=== PATIENT | male | born 1965 | race Caucasian/White ===

== ENCOUNTER 2017-01-24 17:37 | Inpatient (IN) | payer OTHER, MEDICAID ==
[~2017-01-24] VITALS: Ht 162.6 cm; Wt 60.8 kg
[2017-01-24 19:25] LABS: BASOPHIL % 0.2 % (0-2); PLATELET COUNT 350 x10^3mcL (130-400); RED CELL DISTRIBUTION WIDTH 13.2 % (11.5-14.5)
[2017-01-24 19:34] LABS: CALCIUM 8.7 mg/dL (8.5-10.1); CARBON DIOXIDE 28.9 mmol/L (21-32); CHLORIDE SERUM 105 mmol/L (98-107); CREATININE SERUM 0.8 mg/dL (0.7-1.3); GFR1 > 60 mL/min; GLUCOSE SERUM 121 mg/dL (74-106); POTASSIUM SERUM 3.9 mmol/L (3.5-5.1); SODIUM SERUM 142 mmol/L (136-145)
[2017-01-24 19:35] LABS: microscopic required? YES
[2017-01-24 19:36] LABS: urine erythrocyte TRACE (NEGATIVE)
[2017-01-24 19:44] LABS: ALKALINE PHOSPHATASE 60 U/L (46-116); ALT/SGPT 18 U/L (16-63); AST/SGOT 14 U/L (15-37); BILIRUBIN TOTAL 0.3 mg/dL (0.20-1.00); C REACTIVE PROTEIN 6.5 mg/dL (<=0.9); TOTAL PROTEIN, SERUM 8.1 g/dL (6.4-8.2)
[2017-01-24 19:45] LABS: ALBUMIN 3.1 g/dL (3.4-5.0)
[2017-01-24 19:47] LABS: FREE T4 0.98 ng/dL (0.76-1.46); FREE THYROXINE INDEX 2.4 ug/dL (1.4-4.5); T4(THYROXINE) 6.6 ug/dL (4.7-13.3)
[2017-01-24 19:53] LABS: CK-MB < 0.5 ng/mL (0-3.6); CREATINE KINASE 83 U/L (39-308)
[2017-01-24] MEDS ORDERED: ROBAFEN100 MG/5 M GT (21:38)
[2017-01-24] MEDS ORDERED: PROMETHAZI6.25 MG/5 GT (21:41)
[2017-01-24] MEDS ORDERED: GLYCOPYRROLATE1 M1 GT (21:43)
[2017-01-24] MEDS ORDERED: NATURAL IRON65 MG GT (21:46)
[2017-01-24] MEDS ORDERED: UNIFIBER3 GM/4 GM GT (21:47)
[2017-01-24] MEDS ORDERED: CHILDREN'S5 MG/5 M1 GT (21:48)
[2017-01-24] MEDS ORDERED: NEXIUM40 MG GT (21:50)
[2017-01-24] MEDS ORDERED: PODIAPN CAPSUL1 EACH GT (21:51)
[2017-01-24] MEDS ORDERED: NASONEX0.05 MG/Ac NS (21:53)
[2017-01-24] MEDS ORDERED: REG50I GT (21:54)
[2017-01-24] MEDS ORDERED: CENTRUM MEN'S1 EACH GT (21:59)
[2017-01-24] MEDS ORDERED: VITAMIN C500 MG/5 M GT (22:00)
[2017-01-24] MEDS ORDERED: IBUPROFEN100 MG/5 M GT (22:02)
[2017-01-24 22:37] LABS: MAGNESIUM 2.3 mg/dL (1.8-2.4); PHOSPHOROUS 2.1 mg/dL (2.5-4.9)
[2017-01-24 22:50] VITALS: BP 104/65
[2017-01-25 03:10] VITALS: BP 104/65
[2017-01-25] MEDS ORDERED: LAXATIVE5 M1 PR (03:54)
[2017-01-25] MEDS ORDERED: IBUPROFEN400 MG GT (03:58)
[2017-01-25] MEDS ORDERED: LOPERAMIDE1 MG/5 M1 GT (04:02)
[2017-01-25] MEDS ORDERED: FLEET ENEMA135 ML PR (04:03)
[2017-01-25 05:17] VITALS: BP 102/64
[2017-01-25 07:15] LABS: BASOPHIL % 0.3 % (0-2); PLATELET COUNT 302 x10^3mcL (130-400); RED CELL DISTRIBUTION WIDTH 13.8 % (11.5-14.5)
[2017-01-25 08:34] LABS: T3 TOTAL 0.96 ng/mL
[2017-01-25 09:30] VITALS: BP 105/61
[2017-01-25 10:12] LABS: CALCIUM 8.3 mg/dL (8.5-10.1); CARBON DIOXIDE 27.2 mmol/L (21-32); CHLORIDE SERUM 108 mmol/L (98-107); CREATININE SERUM 0.7 mg/dL (0.7-1.3); GFR1 > 60 mL/min; GLUCOSE SERUM 107 mg/dL (74-106); POTASSIUM SERUM 3.9 mmol/L (3.5-5.1); SODIUM SERUM 142 mmol/L (136-145)
[2017-01-25 10:57] LABS: ERYTHROCYTE SED RATE 73 mm/hr (0-20)
[2017-01-25 13:17] VITALS: BP 116/69
[2017-01-25 17:35] VITALS: BP 121/72
[2017-01-25 20:17] VITALS: BP 100/72
[2017-01-26 05:47] VITALS: BP 127/70
[2017-01-26 06:42] LABS: BASOPHIL % 0.4 % (0-2); PLATELET COUNT 277 x10^3mcL (130-400); RED CELL DISTRIBUTION WIDTH 13.2 % (11.5-14.5)
[2017-01-26 06:54] LABS: CALCIUM 8.5 mg/dL (8.5-10.1); CARBON DIOXIDE 27.1 mmol/L (21-32); CHLORIDE SERUM 104 mmol/L (98-107); CREATININE SERUM 0.7 mg/dL (0.7-1.3); GFR1 > 60 mL/min; GLUCOSE SERUM 109 mg/dL (74-106); POTASSIUM SERUM 3.5 mmol/L (3.5-5.1); SODIUM SERUM 138 mmol/L (136-145)
[2017-01-26 08:35] VITALS: BP 133/100
[2017-01-26 11:00] VITALS: BP 108/75
[2017-01-26 13:16] VITALS: BP 116/78
[2017-01-26 16:35] VITALS: BP 116/76
[2017-01-26 20:52] VITALS: BP 115/76
[2017-01-27 07:50] LABS: BASOPHIL % 0.4 % (0-2); PLATELET COUNT 292 x10^3mcL (130-400); RED CELL DISTRIBUTION WIDTH 13.5 % (11.5-14.5)
[2017-01-27 08:09] LABS: CALCIUM 8.6 mg/dL (8.5-10.1); CARBON DIOXIDE 29.1 mmol/L (21-32); CHLORIDE SERUM 103 mmol/L (98-107); CREATININE SERUM 0.7 mg/dL (0.7-1.3); GFR1 > 60 mL/min; GLUCOSE SERUM 98 mg/dL (74-106); MAGNESIUM 2.3 mg/dL (1.8-2.4); PHOSPHOROUS 2.4 mg/dL (2.5-4.9); POTASSIUM SERUM 4.3 mmol/L (3.5-5.1); SODIUM SERUM 137 mmol/L (136-145)
[2017-01-27] MEDS ORDERED: CLA10 GT (09:28)
[2017-01-27] MEDS ORDERED: BACOINT TOP (09:58)
[2017-01-27 10:46] VITALS: BP 115/76
[2017-01-27] MEDS ORDERED: LEVAQUIN750 MG PO (10:58)
[2017-01-27] MEDS ORDERED: PROBIOTIC1 EAC5 PO (11:00)
== END 2017-01-27 13:03 | DRG 871 ==
LOC: ED 17:37 → DU 20:43 → MU 20:43 → DU 22:15 → MU 01-26 12:48
PROVIDERS: Specialist; ADMIT Family Medicine
DX: A41.9 Sepsis, unspecified organism (principal); J96.00 Acute respiratory failure, unspecified whether with hypoxia or hypercapnia; I50.43 Acute on chronic combined systolic (congestive) and diastolic (congestive) heart failure; N17.0 Acute kidney failure with tubular necrosis; G80.0 Spastic quadriplegic cerebral palsy; N39.0 Urinary tract infection, site not specified; E87.3 Alkalosis; F73 Profound intellectual disabilities; R65.20 Severe sepsis without septic shock; R31.9 Hematuria, unspecified; E83.39 Other disorders of phosphorus metabolism; D64.9 Anemia, unspecified; Z68.23 Body mass index [BMI] 23.0-23.9, adult; Z86.11 Personal history of tuberculosis; Z93.1 Gastrostomy status
CPT/HCPCS: 83880; 84439; J0456; J0696; J1956; J2543; J3490; J7030; J7050; J7620; J8597; Q0092

== ENCOUNTER 2017-01-28 15:09 | Emergency (ER) | payer OTHER, MEDICAID ==
[~2017-01-28 15:09] MED LIST: BACOINT TOP; CENTRUM MEN'S1 EACH GT; CHILDREN'S5 MG/5 M1 GT; CLA10 GT; FLEET ENEMA135 ML PR; GLYCOPYRROLATE1 M1 GT; IBUPROFEN100 MG/5 M GT; IBUPROFEN400 MG GT; LAXATIVE5 M1 PR; LEVAQUIN750 MG PO; LOPERAMIDE1 MG/5 M1 GT; NASONEX0.05 MG/Ac NS; NATURAL IRON65 MG GT; NEXIUM40 MG GT; PODIAPN CAPSUL1 EACH GT; PROBIOTIC1 EAC5 PO; PROMETHAZI6.25 MG/5 GT; REG50I GT; ROBAFEN100 MG/5 M GT; UNIFIBER3 GM/4 GM GT; VITAMIN C500 MG/5 M GT
[2017-01-28 16:59] LABS: BASOPHIL % 0.5 % (0-2); PLATELET COUNT 351 x10^3mcL (130-400); RED CELL DISTRIBUTION WIDTH 13.6 % (11.5-14.5)
[2017-01-28 17:10] LABS: CALCIUM 9.3 mg/dL (8.5-10.1); CARBON DIOXIDE 30.5 mmol/L (21-32); CHLORIDE SERUM 101 mmol/L (98-107); CREATININE SERUM 0.7 mg/dL (0.7-1.3); GFR1 > 60 mL/min; GLUCOSE SERUM 96 mg/dL (74-106); POTASSIUM SERUM 3.8 mmol/L (3.5-5.1); SODIUM SERUM 137 mmol/L (136-145)
[2017-01-28 17:21] LABS: ALKALINE PHOSPHATASE 50 U/L (46-116); ALT/SGPT 22 U/L (16-63); AST/SGOT 26 U/L (15-37); BILIRUBIN TOTAL 0.32 mg/dL (0.20-1.00); TOTAL PROTEIN, SERUM 8.2 g/dL (6.4-8.2)
[2017-01-28 18:02] LABS: CK-MB 1.5 ng/mL (0-3.6)
[2017-01-28 18:19] LABS: microscopic required? NO
[2017-01-28 18:32] LABS: urine erythrocyte NEGATIVE (NEGATIVE)
[2017-01-28 20:41] VITALS: BP 138/74
== END 2017-01-28 20:38 | disposition home or self-care (01) ==
LOC: ED 15:09
PROVIDERS: Emergency Medicine
DX: R09.89 Other specified symptoms and signs involving the circulatory and respiratory systems (principal); K21.9 Gastro-esophageal reflux disease without esophagitis; Q02 Microcephaly; E11.9 Type 2 diabetes mellitus without complications; Z86.2 Personal history of diseases of the blood and blood-forming organs and certain disorders involving the immune mechanism; Z88.8 Allergy status to other drugs, medicaments and biological substances
CPT/HCPCS: 36415; 83880; Q0092

== ENCOUNTER 2017-02-01 14:36 | Inpatient (IN) | payer OTHER, MEDICAID ==
[~2017-02-01] VITALS: Ht 162.6 cm; Wt 57.0 kg
[2017-02-01 15:42] LABS: BASOPHIL % 0.4 % (0-2); PLATELET COUNT 356 x10^3mcL (130-400); RED CELL DISTRIBUTION WIDTH 14.4 % (11.5-14.5)
[2017-02-01 15:52] LABS: CALCIUM 9.4 mg/dL (8.5-10.1); CARBON DIOXIDE 31.8 mmol/L (21-32); CHLORIDE SERUM 99 mmol/L (98-107); CREATININE SERUM 0.8 mg/dL (0.7-1.3); GFR1 > 60 mL/min; GLUCOSE SERUM 111 mg/dL (74-106); SODIUM SERUM 136 mmol/L (136-145)
[2017-02-01 15:56] LABS: ALKALINE PHOSPHATASE 57 U/L (46-116); ALT/SGPT 24 U/L (16-63); AST/SGOT 22 U/L (15-37); BILIRUBIN TOTAL 0.59 mg/dL (0.20-1.00)
[2017-02-01 15:57] LABS: ALBUMIN 3.3 g/dL (3.4-5.0); TOTAL PROTEIN, SERUM 8.7 g/dL (6.4-8.2)
[2017-02-01 19:26] VITALS: BP 111/69
[2017-02-01 19:52] LABS: CHOLESTEROL/HDL RATIO 3.9; MAGNESIUM 2.3 mg/dL (1.8-2.4); PHOSPHOROUS 3.5 mg/dL (2.5-4.9)
[2017-02-01 20:03] LABS: FREE T4 1.15 ng/dL (0.76-1.46); FREE THYROXINE INDEX 3.2 ug/dL (1.4-4.5); T4(THYROXINE) 8.8 ug/dL (4.7-13.3)
[2017-02-02 00:39] LABS: UA SPECIFIC GRAVITY 1.025 (1.005-1.035); microscopic required? YES; urine erythrocyte TRACE (NEGATIVE)
[2017-02-02 04:45] VITALS: BP 105/62
[2017-02-02 06:26] LABS: CALCIUM 8.9 mg/dL (8.5-10.1); CARBON DIOXIDE 30.4 mmol/L (21-32); CHLORIDE SERUM 103 mmol/L (98-107); CREATININE SERUM 0.7 mg/dL (0.7-1.3); GFR1 > 60 mL/min; GLUCOSE SERUM 96 mg/dL (74-106); POTASSIUM SERUM 4.2 mmol/L (3.5-5.1); SODIUM SERUM 139 mmol/L (136-145)
[2017-02-02 06:36] LABS: BASOPHIL % 0.6 % (0-2); PLATELET COUNT 274 x10^3mcL (130-400); RED CELL DISTRIBUTION WIDTH 14.1 % (11.5-14.5)
[2017-02-02 08:43] VITALS: BP 104/67
[2017-02-02 11:47] VITALS: Ht 162.6 cm; Wt 57.0 kg
[2017-02-02 14:00] VITALS: BP 102/67
[2017-02-02 18:00] VITALS: BP 122/66
[2017-02-03 06:57] LABS: BASOPHIL % 0.2 % (0-2); PLATELET COUNT 293 x10^3mcL (130-400); RED CELL DISTRIBUTION WIDTH 13.6 % (11.5-14.5)
[2017-02-03 07:30] LABS: CALCIUM 8.5 mg/dL (8.5-10.1); CARBON DIOXIDE 29.7 mmol/L (21-32); CHLORIDE SERUM 104 mmol/L (98-107); CREATININE SERUM 0.8 mg/dL (0.7-1.3); GFR1 > 60 mL/min; GLUCOSE SERUM 95 mg/dL (74-106); MAGNESIUM 2.2 mg/dL (1.8-2.4); PHOSPHOROUS 2.8 mg/dL (2.5-4.9); POTASSIUM SERUM 4.4 mmol/L (3.5-5.1); SODIUM SERUM 140 mmol/L (136-145)
[2017-02-03 09:29] VITALS: BP 105/67
[2017-02-03 12:05] VITALS: BP 104/72
[2017-02-03 17:27] VITALS: BP 110/71
[2017-02-03 21:24] VITALS: BP 112/82
[2017-02-04 06:15] VITALS: BP 124/72
[2017-02-04 06:55] LABS: BASOPHIL % 0.4 % (0-2); PLATELET COUNT 306 x10^3mcL (130-400); RED CELL DISTRIBUTION WIDTH 14.2 % (11.5-14.5)
[2017-02-04 07:11] LABS: CALCIUM 8.8 mg/dL (8.5-10.1); CARBON DIOXIDE 32.8 mmol/L (21-32); CHLORIDE SERUM 103 mmol/L (98-107); CREATININE SERUM 0.7 mg/dL (0.7-1.3); GFR1 > 60 mL/min; GLUCOSE SERUM 109 mg/dL (74-106); MAGNESIUM 2.2 mg/dL (1.8-2.4); POTASSIUM SERUM 4.5 mmol/L (3.5-5.1); SODIUM SERUM 140 mmol/L (136-145)
[2017-02-04 10:59] VITALS: BP 112/80
[2017-02-04 13:51] VITALS: BP 123/80
[2017-02-04 17:39] VITALS: BP 119/81
[2017-02-04 22:20] VITALS: BP 141/77
[2017-02-05 07:23] VITALS: BP 105/65
[2017-02-05 09:15] VITALS: BP 122/82
[2017-02-05 09:40] VITALS: BP 128/72
[2017-02-05 12:50] VITALS: BP 105/66
[2017-02-05 17:05] VITALS: BP 115/71
[2017-02-05 21:41] VITALS: BP 112/89
[2017-02-06 06:06] VITALS: BP 110/65
[2017-02-06 06:29] LABS: BASOPHIL % 0.3 % (0-2); PLATELET COUNT 287 x10^3mcL (130-400); RED CELL DISTRIBUTION WIDTH 14.2 % (11.5-14.5)
[2017-02-06 06:36] LABS: CARBON DIOXIDE 28.5 mmol/L (21-32); CHLORIDE SERUM 103 mmol/L (98-107); CREATININE SERUM 0.8 mg/dL (0.7-1.3); GFR1 > 60 mL/min; GLUCOSE SERUM 105 mg/dL (74-106); MAGNESIUM 2.5 mg/dL (1.8-2.4); PHOSPHOROUS 3.1 mg/dL (2.5-4.9); POTASSIUM SERUM 3.7 mmol/L (3.5-5.1); SODIUM SERUM 138 mmol/L (136-145)
[2017-02-06 09:20] VITALS: BP 123/77
[2017-02-06 12:49] VITALS: BP 116/86
[2017-02-06 17:11] VITALS: BP 103/40
[2017-02-06 21:30] VITALS: BP 129/83
[2017-02-07 06:21] VITALS: BP 111/74
[2017-02-07 07:26] LABS: CALCIUM 9.2 mg/dL (8.5-10.1); CARBON DIOXIDE 29.3 mmol/L (21-32); CHLORIDE SERUM 102 mmol/L (98-107); CREATININE SERUM 0.8 mg/dL (0.7-1.3); GFR1 > 60 mL/min; GLUCOSE SERUM 91 mg/dL (74-106); MAGNESIUM 2.4 mg/dL (1.8-2.4); PHOSPHOROUS 3.3 mg/dL (2.5-4.9); POTASSIUM SERUM 4.4 mmol/L (3.5-5.1); SODIUM SERUM 138 mmol/L (136-145)
[2017-02-07 07:36] LABS: BASOPHIL % 0.4 % (0-2); PLATELET COUNT 293 x10^3mcL (130-400); RED CELL DISTRIBUTION WIDTH 14.3 % (11.5-14.5)
[2017-02-07 09:43] VITALS: BP 120/75
[2017-02-07 12:23] VITALS: BP 108/71
[2017-02-07 16:30] VITALS: BP 104/55
[2017-02-07 21:23] VITALS: BP 119/73
[2017-02-08 06:42] VITALS: BP 113/68
[2017-02-08 07:13] LABS: BASOPHIL % 0.4 % (0-2); PLATELET COUNT 298 x10^3mcL (130-400)
[2017-02-08 07:20] LABS: RED CELL DISTRIBUTION WIDTH 14.6 % (11.5-14.5)
[2017-02-08 07:53] LABS: CALCIUM 9.2 mg/dL (8.5-10.1); CARBON DIOXIDE 28.9 mmol/L (21-32); CHLORIDE SERUM 102 mmol/L (98-107); CREATININE SERUM 0.8 mg/dL (0.7-1.3); GFR1 > 60 mL/min; GLUCOSE SERUM 111 mg/dL (74-106); MAGNESIUM 2.5 mg/dL (1.8-2.4); PHOSPHOROUS 3.4 mg/dL (2.5-4.9); POTASSIUM SERUM 3.9 mmol/L (3.5-5.1); SODIUM SERUM 138 mmol/L (136-145)
[2017-02-08 09:33] VITALS: BP 106/68
[2017-02-08 14:05] VITALS: BP 109/79
[2017-02-08 18:56] VITALS: BP 157/87
[2017-02-08 21:50] VITALS: BP 102/68
[2017-02-09 05:51] VITALS: BP 112/52
[2017-02-09 06:32] LABS: BASOPHIL % 0.9 % (0-2); PLATELET COUNT 317 x10^3mcL (130-400)
[2017-02-09 07:10] LABS: CALCIUM 9.1 mg/dL (8.5-10.1); CARBON DIOXIDE 30.2 mmol/L (21-32); CHLORIDE SERUM 101 mmol/L (98-107); CREATININE SERUM 0.9 mg/dL (0.7-1.3); GFR1 > 60 mL/min; GLUCOSE SERUM 100 mg/dL (74-106); MAGNESIUM 2.3 mg/dL (1.8-2.4); PHOSPHOROUS 3.5 mg/dL (2.5-4.9); POTASSIUM SERUM 4.2 mmol/L (3.5-5.1); SODIUM SERUM 138 mmol/L (136-145)
[2017-02-09 10:36] VITALS: BP 110/70
[2017-02-09 14:00] VITALS: BP 127/76
[2017-02-09 17:40] VITALS: BP 117/78
[2017-02-09 20:37] VITALS: BP 115/80
[2017-02-10 05:57] VITALS: BP 126/81
[2017-02-10 06:18] LABS: BASOPHIL % 0.5 % (0-2); PLATELET COUNT 303 x10^3mcL (130-400); RED CELL DISTRIBUTION WIDTH 14.5 % (11.5-14.5)
[2017-02-10 07:01] LABS: CALCIUM 9.2 mg/dL (8.5-10.1); CARBON DIOXIDE 27.1 mmol/L (21-32); CHLORIDE SERUM 104 mmol/L (98-107); CREATININE SERUM 0.8 mg/dL (0.7-1.3); GFR1 > 60 mL/min; GLUCOSE SERUM 105 mg/dL (74-106); MAGNESIUM 2.5 mg/dL (1.8-2.4); POTASSIUM SERUM 3.9 mmol/L (3.5-5.1); SODIUM SERUM 140 mmol/L (136-145)
[2017-02-10 09:17] VITALS: BP 101/69
[2017-02-10 13:59] VITALS: BP 112/71
[2017-02-10 17:40] VITALS: BP 122/89
[2017-02-10 22:22] VITALS: BP 128/83
[2017-02-11 09:02] VITALS: BP 101/72
[2017-02-11 09:24] LABS: PLATELET COUNT 307 x10^3mcL (130-400)
[2017-02-11 09:42] LABS: CALCIUM 9.3 mg/dL (8.5-10.1); CARBON DIOXIDE 27.2 mmol/L (21-32); CHLORIDE SERUM 104 mmol/L (98-107); CREATININE SERUM 0.8 mg/dL (0.7-1.3); GFR1 > 60 mL/min; GLUCOSE SERUM 114 mg/dL (74-106); MAGNESIUM 2.6 mg/dL (1.8-2.4); POTASSIUM SERUM 4.3 mmol/L (3.5-5.1); SODIUM SERUM 139 mmol/L (136-145)
[2017-02-11 09:47] LABS: RED CELL DISTRIBUTION WIDTH 14.9 % (11.5-14.5)
[2017-02-11 17:48] VITALS: BP 113/82
[2017-02-11 21:42] VITALS: BP 112/74
[2017-02-12 06:05] VITALS: BP 106/74
[2017-02-12 06:05] LABS: BASOPHIL % 0.7 % (0-2); PLATELET COUNT 313 x10^3mcL (130-400)
[2017-02-12 06:15] LABS: CALCIUM 9.3 mg/dL (8.5-10.1); CARBON DIOXIDE 31.8 mmol/L (21-32); CHLORIDE SERUM 100 mmol/L (98-107); CREATININE SERUM 0.9 mg/dL (0.7-1.3); GFR1 > 60 mL/min; GLUCOSE SERUM 104 mg/dL (74-106); MAGNESIUM 2.4 mg/dL (1.8-2.4); POTASSIUM SERUM 4.4 mmol/L (3.5-5.1); SODIUM SERUM 137 mmol/L (136-145)
[2017-02-12 06:39] LABS: RED CELL DISTRIBUTION WIDTH 14.9 % (11.5-14.5)
[2017-02-12 09:14] VITALS: BP 103/68
[2017-02-12 11:51] VITALS: BP 128/75
[2017-02-12 16:49] VITALS: BP 132/74
[2017-02-12 21:21] VITALS: BP 130/78
[2017-02-13 03:46] VITALS: BP 130/78
[2017-02-13 06:01] VITALS: BP 138/75
[2017-02-13 06:07] LABS: BASOPHIL % 0.8 % (0-2); PLATELET COUNT 345 x10^3mcL (130-400)
[2017-02-13 06:19] LABS: CALCIUM 9.1 mg/dL (8.5-10.1); CARBON DIOXIDE 29.1 mmol/L (21-32); CHLORIDE SERUM 103 mmol/L (98-107); CREATININE SERUM 0.7 mg/dL (0.7-1.3); GFR1 > 60 mL/min; GLUCOSE SERUM 95 mg/dL (74-106); MAGNESIUM 2.2 mg/dL (1.8-2.4); PHOSPHOROUS 3.5 mg/dL (2.5-4.9); POTASSIUM SERUM 4.4 mmol/L (3.5-5.1); SODIUM SERUM 140 mmol/L (136-145)
[2017-02-13 06:31] LABS: RED CELL DISTRIBUTION WIDTH 15.3 % (11.5-14.5)
[2017-02-13 09:32] VITALS: BP 128/81
[2017-02-13 17:31] VITALS: BP 101/69
[2017-02-13 21:32] VITALS: BP 110/74
[2017-02-14 06:02] VITALS: BP 106/68
[2017-02-14 06:16] LABS: BASOPHIL % 0.6 % (0-2); PLATELET COUNT 299 x10^3mcL (130-400)
[2017-02-14 06:37] LABS: CALCIUM 9.2 mg/dL (8.5-10.1); CARBON DIOXIDE 28.5 mmol/L (21-32); CHLORIDE SERUM 102 mmol/L (98-107); CREATININE SERUM 0.8 mg/dL (0.7-1.3); GFR1 > 60 mL/min; GLUCOSE SERUM 112 mg/dL (74-106); MAGNESIUM 2.2 mg/dL (1.8-2.4); POTASSIUM SERUM 4.7 mmol/L (3.5-5.1); SODIUM SERUM 139 mmol/L (136-145)
[2017-02-14 09:36] VITALS: BP 107/72
[2017-02-14 17:09] VITALS: BP 115/75
[2017-02-14 21:17] VITALS: BP 129/87
[2017-02-15 05:30] VITALS: BP 120/76
[2017-02-15 05:59] LABS: BASOPHIL % 0.3 % (0-2); PLATELET COUNT 301 x10^3mcL (130-400)
[2017-02-15 06:14] LABS: RED CELL DISTRIBUTION WIDTH 15.2 % (11.5-14.5)
[2017-02-15 06:23] LABS: CALCIUM 9.1 mg/dL (8.5-10.1); CARBON DIOXIDE 28.9 mmol/L (21-32); CHLORIDE SERUM 105 mmol/L (98-107); CREATININE SERUM 0.8 mg/dL (0.7-1.3); GFR1 > 60 mL/min; GLUCOSE SERUM 122 mg/dL (74-106); MAGNESIUM 2.2 mg/dL (1.8-2.4); PHOSPHOROUS 3.4 mg/dL (2.5-4.9); POTASSIUM SERUM 4.6 mmol/L (3.5-5.1); SODIUM SERUM 142 mmol/L (136-145)
[2017-02-15 08:20] VITALS: BP 112/79
[2017-02-15 10:50] LABS: BILIRUBIN DIRECT 0.09 mg/dL (0.0-0.2); BILIRUBIN TOTAL 0.21 mg/dL (0.20-1.00); TOTAL PROTEIN, SERUM 7.5 g/dL (6.4-8.2)
[2017-02-15 10:51] LABS: ALBUMIN 3.1 g/dL (3.4-5.0)
[2017-02-15] MEDS ORDERED: ETH400 PO (16:25)
[2017-02-15] MEDS ORDERED: ISO300 GT (16:26)
[2017-02-15] MEDS ORDERED: RIF300 PO (16:35)
[2017-02-15] MEDS ORDERED: PYR500 PO (16:35)
[2017-02-15] MEDS ORDERED: IPRATROPIUM BROM3 M2 HHN (16:36)
[2017-02-15] MEDS ORDERED: BG FS (16:37)
[2017-02-15] MEDS ORDERED: PRI20 GT (16:38)
[2017-02-15] MEDS ORDERED: BACO TOP (16:38)
[2017-02-15] MEDS ORDERED: VITC GT (16:39)
[2017-02-15] MEDS ORDERED: MVIL GT (16:39)
[2017-02-15 16:55] VITALS: BP 123/69
== END 2017-02-15 17:39 | DRG 177 ==
LOC: ED 14:36 → DU 16:07 → MU 02-11 10:01
PROVIDERS: Emergency Medicine; Family Medicine; ADMIT Family Medicine
DX: J69.0 Pneumonitis due to inhalation of food and vomit (principal); J96.21 Acute and chronic respiratory failure with hypoxia; N17.0 Acute kidney failure with tubular necrosis; N39.0 Urinary tract infection, site not specified; E44.0 Moderate protein-calorie malnutrition; A15.0 Tuberculosis of lung; R31.9 Hematuria, unspecified; E83.39 Other disorders of phosphorus metabolism; M41.86 Other forms of scoliosis, lumbar region; G80.9 Cerebral palsy, unspecified; F79 Unspecified intellectual disabilities; D64.9 Anemia, unspecified; R73.03 Prediabetes; R13.10 Dysphagia, unspecified; Z86.11 Personal history of tuberculosis; Z68.21 Body mass index [BMI] 21.0-21.9, adult; Z93.1 Gastrostomy status
CPT/HCPCS: 82962; 83880; 84439; 86480; 87116; 87206; J0696; J1580; J1630; J1956; J2060; J2543; J7030; J7613; J7620; J7644; Q0092; Q9967

== ENCOUNTER 2017-03-21 21:51 | Inpatient (IN) | payer OTHER, MEDICAID ==
[~2017-03-21] VITALS: Ht 154.9 cm; Wt 59.0 kg
[~2017-03-21 21:51] MED LIST changes: +BACO TOP; +BG FS; +ETH400 PO; +IPRATROPIUM BROM3 M2 HHN; +ISO300 GT; +MVIL GT; +PRI20 GT; +PYR500 PO; +RIF300 PO; +VITC GT
[2017-03-21 23:18] LABS: BASOPHIL % 0.6 % (0-2); PLATELET COUNT 189 x10^3mcL (130-400)
[2017-03-21 23:20] LABS: RED CELL DISTRIBUTION WIDTH 15.7 % (11.5-14.5)
[2017-03-21 23:32] LABS: CALCIUM 9.7 mg/dL (8.5-10.1); CHLORIDE SERUM 117 mmol/L (98-107); GFR1 > 60 mL/min; GLUCOSE SERUM 113 mg/dL (74-106); POTASSIUM SERUM 3.9 mmol/L (3.5-5.1); SODIUM SERUM 158 mmol/L (136-145)
[2017-03-21 23:43] LABS: ALBUMIN 3.7 g/dL (3.4-5.0); ALKALINE PHOSPHATASE 67 U/L (46-116); ALT/SGPT 41 U/L (16-63); AMYLASE 77 U/L (25-115); AST/SGOT 25 U/L (15-37); BILIRUBIN TOTAL 0.3 mg/dL (0.20-1.00); LIPASE 332 IU/L (73-393)
[2017-03-21 23:44] LABS: TOTAL PROTEIN, SERUM 8.3 g/dL (6.4-8.2)
[2017-03-22 00:51] LABS: microscopic required? YES; urine erythrocyte NEGATIVE (NEGATIVE)
[2017-03-22] MEDS ORDERED: ACETAMINOP160 MG/52 PO (02:55)
[2017-03-22] MEDS ORDERED: CHILDREN'S100 MG/52 PO (02:56)
[2017-03-22] MEDS ORDERED: LOPERAMIDE1 MG/5 M1 PO (02:56)
[2017-03-22] MEDS ORDERED: NEXIUM40 MG PO (02:57)
[2017-03-22] MEDS ORDERED: PROMETHAZI6.25 MG/3 (02:57)
[2017-03-22] MEDS ORDERED: FERROUS SULFAT325 M2 PO (02:57)
[2017-03-22] MEDS ORDERED: CHILDREN'S5 MG/5 M1 PO (02:58)
[2017-03-22] MEDS ORDERED: REG10I GT (02:58)
[2017-03-22] MEDS ORDERED: ETHAMBUTOL HCL400 MG PO (02:59)
[2017-03-22] MEDS ORDERED: UNIFIBER3 GM/4 GM (02:59)
[2017-03-22] MEDS ORDERED: NASONEX0.05 MG/Ac (02:59)
[2017-03-22] MEDS ORDERED: PYR500 GT (03:00)
[2017-03-22] MEDS ORDERED: ISO300 GT (03:00)
[2017-03-22] MEDS ORDERED: GOOD SENSE OMEP20 MG GT (03:01)
[2017-03-22] MEDS ORDERED: RIFADIN300 MG GT (03:01)
[2017-03-22 03:50] VITALS: BP 105/69
[2017-03-22 04:11] LABS: T3 TOTAL 1.24 ng/mL
[2017-03-22 04:22] LABS: FREE T4 0.83 ng/dL (0.76-1.46); FREE THYROXINE INDEX 2.3 ug/dL (1.4-4.5); T4(THYROXINE) 7.2 ug/dL (4.7-13.3)
[2017-03-22 04:34] LABS: CHOLESTEROL/HDL RATIO 5.4; MAGNESIUM 2.8 mg/dL (1.8-2.4); PHOSPHOROUS 4.4 mg/dL (2.5-4.9)
[2017-03-22 09:42] VITALS: BP 91/50
[2017-03-22 14:23] VITALS: BP 115/73
[2017-03-22 15:20] LABS: CALCIUM 8.3 mg/dL (8.5-10.1); CARBON DIOXIDE 30.4 mmol/L (21-32); CHLORIDE SERUM 121 mmol/L (98-107); CREATININE SERUM 0.9 mg/dL (0.7-1.3); GFR1 > 60 mL/min; GLUCOSE SERUM 96 mg/dL (74-106); POTASSIUM SERUM 3.6 mmol/L (3.5-5.1); SODIUM SERUM 157 mmol/L (136-145)
[2017-03-22 15:27] LABS: BASOPHIL % 0.5 % (0-2); PLATELET COUNT 149 x10^3mcL (130-400)
[2017-03-22 15:28] LABS: RED CELL DISTRIBUTION WIDTH 15.5 % (11.5-14.5)
[2017-03-22 16:38] VITALS: BP 95/69
[2017-03-22 20:45] VITALS: BP 102/63
[2017-03-23 06:51] LABS: BASOPHIL % 0.1 % (0-2); PLATELET COUNT 140 x10^3mcL (130-400)
[2017-03-23 06:59] LABS: RED CELL DISTRIBUTION WIDTH 15.1 % (11.5-14.5)
[2017-03-23 07:17] LABS: CALCIUM 8.9 mg/dL (8.5-10.1); CARBON DIOXIDE 30.5 mmol/L (21-32); CHLORIDE SERUM 115 mmol/L (98-107); CREATININE SERUM 0.8 mg/dL (0.7-1.3); GFR1 > 60 mL/min; GLUCOSE SERUM 120 mg/dL (74-106); MAGNESIUM 2.1 mg/dL (1.8-2.4); PHOSPHOROUS 2.7 mg/dL (2.5-4.9); POTASSIUM SERUM 3.7 mmol/L (3.5-5.1); SODIUM SERUM 151 mmol/L (136-145)
[2017-03-23 08:05] VITALS: BP 109/59
[2017-03-23 17:22] VITALS: BP 90/61
[2017-03-23 21:28] VITALS: BP 103/64
[2017-03-24 06:21] VITALS: BP 99/68
[2017-03-24 06:22] LABS: CALCIUM 8.4 mg/dL (8.5-10.1); CARBON DIOXIDE 32.3 mmol/L (21-32); CHLORIDE SERUM 112 mmol/L (98-107); CREATININE SERUM 0.8 mg/dL (0.7-1.3); GFR1 > 60 mL/min; GLUCOSE SERUM 104 mg/dL (74-106); MAGNESIUM 2.2 mg/dL (1.8-2.4); PHOSPHOROUS 2.8 mg/dL (2.5-4.9); POTASSIUM SERUM 3.4 mmol/L (3.5-5.1); SODIUM SERUM 148 mmol/L (136-145)
[2017-03-24 06:27] LABS: BASOPHIL % 0.2 % (0-2); PLATELET COUNT 152 x10^3mcL (130-400)
[2017-03-24 06:40] LABS: RED CELL DISTRIBUTION WIDTH 14.9 % (11.5-14.5)
[2017-03-24 07:42] VITALS: BP 108/67
[2017-03-24 10:00] VITALS: BP 101/70
[2017-03-24 10:38] VITALS: Ht 154.9 cm; Wt 59.0 kg
[2017-03-24 13:25] VITALS: BP 103/66
[2017-03-24 21:50] VITALS: BP 104/66
[2017-03-25 06:20] VITALS: BP 101/64
[2017-03-25 06:55] LABS: BASOPHIL % 0.1 % (0-2); PLATELET COUNT 147 x10^3mcL (130-400)
[2017-03-25 07:03] LABS: RED CELL DISTRIBUTION WIDTH 15.1 % (11.5-14.5)
[2017-03-25 07:09] LABS: CALCIUM 8.3 mg/dL (8.5-10.1); CARBON DIOXIDE 31.2 mmol/L (21-32); CHLORIDE SERUM 109 mmol/L (98-107); CREATININE SERUM 0.7 mg/dL (0.7-1.3); GFR1 > 60 mL/min; GLUCOSE SERUM 114 mg/dL (74-106); MAGNESIUM 2.1 mg/dL (1.8-2.4); PHOSPHOROUS 2.6 mg/dL (2.5-4.9); POTASSIUM SERUM 3.4 mmol/L (3.5-5.1); SODIUM SERUM 143 mmol/L (136-145)
[2017-03-25 09:00] VITALS: BP 103/73
[2017-03-25 18:45] VITALS: BP 102/73
[2017-03-25 21:55] VITALS: BP 108/69
[2017-03-26 05:04] VITALS: BP 102/65
[2017-03-26 06:50] LABS: BASOPHIL % 0.2 % (0-2); CALCIUM 8.7 mg/dL (8.5-10.1); CHLORIDE SERUM 107 mmol/L (98-107); CREATININE SERUM 0.7 mg/dL (0.7-1.3); GFR1 > 60 mL/min; GLUCOSE SERUM 111 mg/dL (74-106); MAGNESIUM 2.2 mg/dL (1.8-2.4); PHOSPHOROUS 3.1 mg/dL (2.5-4.9); PLATELET COUNT 164 x10^3mcL (130-400); POTASSIUM SERUM 4.3 mmol/L (3.5-5.1); SODIUM SERUM 143 mmol/L (136-145)
[2017-03-26 07:00] LABS: RED CELL DISTRIBUTION WIDTH 14.9 % (11.5-14.5)
[2017-03-26 09:03] VITALS: BP 113/75
[2017-03-26] MEDS ORDERED: SEROQUEL100 MG PO (10:17)
[2017-03-26 11:42] VITALS: BP 113/75
[2017-03-26 12:17] VITALS: BP 99/64
[2017-04-01] MEDS ORDERED: ROBAFEN100 MG/5 M GT (16:23)
== END 2017-03-26 14:20 | DRG 640 ==
LOC: ED 21:51 → DU 03-22 02:14 → MU 03-24 10:05
PROVIDERS: Emergency Medicine; Family Medicine; Family Medicine Sports Medicine; ADMIT Family Medicine
DX: E86.0 Dehydration (principal); N17.0 Acute kidney failure with tubular necrosis; G93.41 Metabolic encephalopathy; G80.0 Spastic quadriplegic cerebral palsy; F73 Profound intellectual disabilities; E87.0 Hyperosmolality and hypernatremia; E83.41 Hypermagnesemia; Q90.9 Down syndrome, unspecified; Z93.1 Gastrostomy status; Z68.21 Body mass index [BMI] 21.0-21.9, adult
CPT/HCPCS: 82962; 83880; 84439; 90658; J2405; J3490; J7030; J7040; J7050; Q0092

== ENCOUNTER 2017-03-26 22:53 | Emergency (ER) | payer OTHER, MEDICAID ==
[~2017-03-26 22:53] MED LIST changes: +ACETAMINOP160 MG/52 PO; +CHILDREN'S100 MG/52 PO; +CHILDREN'S5 MG/5 M1 PO; +ETHAMBUTOL HCL400 MG PO; +FERROUS SULFAT325 M2 PO; +GOOD SENSE OMEP20 MG GT; +LOPERAMIDE1 MG/5 M1 PO; +NASONEX0.05 MG/Ac; +NEXIUM40 MG PO; +PROMETHAZI6.25 MG/3; +PYR500 GT; +REG10I GT; +RIFADIN300 MG GT; +SEROQUEL100 MG PO; +UNIFIBER3 GM/4 GM
[2017-03-27 00:37] LABS: BASOPHIL % 0.4 % (0-2); PLATELET COUNT 192 x10^3mcL (130-400)
[2017-03-27 00:38] LABS: RED CELL DISTRIBUTION WIDTH 14.8 % (11.5-14.5)
[2017-03-27 00:51] LABS: CALCIUM 8.9 mg/dL (8.5-10.1); CARBON DIOXIDE 31.2 mmol/L (21-32); CHLORIDE SERUM 106 mmol/L (98-107); CREATININE SERUM 0.8 mg/dL (0.7-1.3); GFR1 > 60 mL/min; GLUCOSE SERUM 131 mg/dL (74-106); POTASSIUM SERUM 3.7 mmol/L (3.5-5.1); SODIUM SERUM 142 mmol/L (136-145)
[2017-03-27 00:55] LABS: ALKALINE PHOSPHATASE 58 U/L (46-116); ALT/SGPT 33 U/L (16-63); AST/SGOT 38 U/L (15-37); BILIRUBIN TOTAL 0.39 mg/dL (0.20-1.00); TOTAL PROTEIN, SERUM 7.2 g/dL (6.4-8.2)
[2017-03-27 07:10] VITALS: BP 108/68
== END 2017-03-27 07:10 | disposition home or self-care (01) ==
LOC: ED 22:53
PROVIDERS: Emergency Medicine
DX: R00.0 Tachycardia, unspecified (principal); E11.9 Type 2 diabetes mellitus without complications; K21.9 Gastro-esophageal reflux disease without esophagitis; G82.20 Paraplegia, unspecified; Q02 Microcephaly
CPT/HCPCS: J7030

== ENCOUNTER 2017-04-01 12:31 | Inpatient (IN) | payer OTHER, MEDICAID ==
[~2017-04-01] VITALS: Ht 154.9 cm; Wt 53.7 kg
--- NOTE | 2017-04-01 12:49 | NUR ---
PT BROUGHT TO ED VIA [facility] FROM [facility] FOR GENERALIZED WEAKNESS X2 WEEKS AND INCREASED LETHARY AND AGITATION SINCE THIS MORNING. PT HAS HX OF AUTISM, PROFOUND MR, NONVERBAL, NON AMBULATORY. PER REPORT PT WAS RECENTLY DISCHARGED FROM [facility]. PT ARRIVED TO ED AWAKE, NON VERBAL, RESPS EVEN AND UNLABORED, LUNG SOUNDS CLEAR, BARREL CHEST AND CAULIFLOWER EARS NOTED, SKIN WARM/DRY TO TOUCH WITH INCREASED DRYNESS NOTED TO EXTREMITIES, G-TUBE IN PLACE TO MUQ WITH SLIGHT REDNESS SURROUNDING AREA AND NO DRAINAGE NOTED, DIAPER IN PLACE FROM FACILITY, RIGIDITY NOTED TO BILATERAL ARMS AND LEGS, NO S/S OF DISTRESS NOTED. PT GOWNED, PLACED ON INFORMATION SYSTEMS COORDINATOR.
--- NOTE | 2017-04-01 13:05 | NUR ---
MSE COMPLETED BY DR. HERNANDEZ.
--- NOTE | 2017-04-01 13:17 | NUR ---
FABY HERRERA FROM PT'S BOARD AND [facility] CALLED AND REPORTED PT HAS BEEN TAKING PROPHYLACTIC TB MEDS X1 MONTH, NEGATIVE SPUTUM CULTURES, TESTED POSITIVE IN PAST, SHE ALSO REPORTS EPISODES OF VOMITING STARTED AT NIGHT APPROX 1.5 MONTHS AGO AND HE WAS SEEN IN ED FOR SAME LAST WEEK AND BY HIS PRIMARY MD 3 DAYS AGO AND PRESCRIBEDS ZOFRAN WITH NO EFFECTIVENESS. PT LAST VOMITED AT 0230 TODAY PER CAREGIVER, SHE ALSO STATED HE HAS G-TUBE FEEDING VIA PUMP FROM [id number] DAILY.
[2017-04-01 13:28] LABS: BASOPHIL % 0.2 % (0-2); PLATELET COUNT 361 x10^3mcL (130-400)
[2017-04-01 13:29] LABS: RED CELL DISTRIBUTION WIDTH 15.6 % (11.5-14.5)
[2017-04-01 13:36] LABS: CALCIUM 9.9 mg/dL (8.5-10.1); CARBON DIOXIDE 38.1 mmol/L (21-32); CHLORIDE SERUM 109 mmol/L (98-107); GFR1 > 60 mL/min; GLUCOSE SERUM 127 mg/dL (74-106); POTASSIUM SERUM 3.7 mmol/L (3.5-5.1); SODIUM SERUM 154 mmol/L (136-145)
[2017-04-01 13:47] LABS: ALKALINE PHOSPHATASE 62 U/L (46-116); ALT/SGPT 55 U/L (16-63); AMYLASE 67 U/L (25-115); AST/SGOT 38 U/L (15-37); BILIRUBIN TOTAL 0.2 mg/dL (0.20-1.00); CHOLESTEROL 190 mg/dL (<200); HDL CHOLESTEROL 40 mg/dL (40-60); LIPASE 226 IU/L (73-393); MAGNESIUM 2.6 mg/dL (1.8-2.4); T4(THYROXINE) 7.7 ug/dL (4.7-13.3); TOTAL PROTEIN, SERUM 7.7 g/dL (6.4-8.2)
--- NOTE | 2017-04-01 13:52 | NUR ---
RT AT BEDSIDE FOR ABG DRAW.
[2017-04-01 13:57] LABS: ALBUMIN 3.1 g/dL (3.4-5.0)
--- NOTE | 2017-04-01 14:25 | NUR ---
MULTIPLE ATTEMPTS AT ABG, UNOBTAINABLE AT THIS TIME, GILBERT CATH STARTED WITH A COUDE, DIFFICULT INSERTION
[2017-04-01 14:35] LABS: microscopic required? YES; urine erythrocyte NEGATIVE (NEGATIVE)
[2017-04-01 14:45] LABS: AMPHETAMINE QUAL UR NONE DETECTED (NEG <=1000)
--- NOTE | 2017-04-01 15:07 | NUR ---
PT LAYING IN ED GURNEY IN POSITION OF COMFORT, SLEEPING, EASILY AROUSABLE, RESPS EVEN AND UNLABORED, SKIN WARM/DRY TO TOUCH, NO S/S OF DISTRESS NOTED.
--- NOTE | 2017-04-01 15:35 | NUR ---
2L NS BOLUS COMPLETED PER ORDERS TO LEFT FA IV WITH NO SIGNS OF INFILTRATION TO IV SITE, PT IN NO DISTRESS. COMFORT MEASURES IN PLACE.
[2017-04-01] MEDS ORDERED: ACETAMINOP160 MG/52 GT (16:18)
[2017-04-01] MEDS ORDERED: BISAC-EVAC10 MG RC (16:19)
[2017-04-01] MEDS ORDERED: FLEET ENEMA135 ML RC (16:19)
[2017-04-01] MEDS ORDERED: GLYCOPYRROLATE1 M1 GT (16:20)
[2017-04-01] MEDS ORDERED: QUALITY CHOICE200 MG GT (16:21)
[2017-04-01] MEDS ORDERED: LOPERAMIDE1 MG/5 M1 GT (16:21)
[2017-04-01] MEDS ORDERED: PHENYLEPHRINE GT (16:22)
[2017-04-01] MEDS ORDERED: GOODSENSE100 MG/5 M GT (16:23)
[2017-04-01] MEDS ORDERED: NUTREN 2.0250 ML GT (16:25)
[2017-04-01] MEDS ORDERED: ZOF4 GT (16:26)
[2017-04-01] MEDS ORDERED: ETHAMBUTOL HCL400 MG GT (16:27)
[2017-04-01] MEDS ORDERED: NEXIUM40 MG GT (16:27)
[2017-04-01] MEDS ORDERED: FERL GT (16:28)
[2017-04-01] MEDS ORDERED: HM COMPLETE MU1 EACH GT (16:29)
[2017-04-01] MEDS ORDERED: CHILDREN'S5 MG/5 M1 GT (16:29)
[2017-04-01] MEDS ORDERED: NASONEX0.05 MG/Ac (16:30)
[2017-04-01] MEDS ORDERED: METOCLOPRAM5 MG/5 M3 GT (16:30)
[2017-04-01] MEDS ORDERED: GOOD SENSE OMEP20 MG GT (16:30)
[2017-04-01] MEDS ORDERED: PYR500 GT (16:31)
[2017-04-01] MEDS ORDERED: UNIFIBER3 GM/4 GM GT (16:32)
--- NOTE | 2017-04-01 16:32 | NUR ---
REPORT CALLED TO REG GRIFFITH, PT TO BE ADMITTED TO TELE ROOM 242B. PT IN NO DISTRESS.
[2017-04-01] MEDS ORDERED: VITAMIN B-650 M2 GT (16:33)
[2017-04-01] MEDS ORDERED: PHARMASSURE VI500 MG GT (16:34)
--- NOTE | 2017-04-01 16:54 | NUR ---
RECEIVED PT FROM ED VIA GUERNEY, CAME IN DUE TO VOMITING AND WEAKNESS. ALERT AND AWAKE, NON-VERBAL, DOES NOT FOLLOW COMMANDS. NO SOB NOTED, LUNG SOUNDS DIMINISHED ON AUSCULTATION. NO S/S OF CHEST PAIN/PRESSURE, SINUS TACHYCARDIA, HR AT 110. NO S/S OF ABDOMINAL DISCOMFORT. BOWEL SOUNDS HYPOACTIVE. W/ G-TUBE MONEGASQUE 22, CLAMPED AT THIS TIME. W/ MILD REDNESS NOTED ON THE G-TUBE SITE, NO DRAINAGE NOTED. W/ GILBERT CATHETER MONEGASQUE 18 DRAINING W/ YESENIA COLORED URINE. IV SITE PATENT AND INTACT. PADDED SIDE RAILS UP. ON AIR MATTRESS. HOB ELEVATED AT 40 DEG. PRIMARY NURSE EVITA AT BEDSIDE FOR CONTINUITY OF CARE.
[2017-04-01 17:17] VITALS: BP 107/61
[2017-04-01 17:21] VITALS: Ht 154.9 cm; Wt 53.7 kg
--- NOTE | 2017-04-01 18:05 | NUR ---
Pt. ALERT, AWAKE NON VERBAL UNABLE TO FOLLOW COMMANDS, RESPIRATIONS EVEN AND UNLABORED O2 2L/MIN NC NO DISTRESS NOTED. NO SIGNS PAIN/DISCOMFORT AT THIS TIME. TELE IN PLACE. IVF RUNNING TO IV LFA PATENT AND INTACT. AIR MATTRESS AND SZ PRECAUTIONS IN PLACE. G TUBE CLAMPED. GILBERT CATHETER DRAINING CLOUDY YESENIA COLORED URINE. BED LOW/LOCKED. CALL LIGHT IN REACH. CONTACT PRECAUTIONS IN PLACE.
--- NOTE | 2017-04-01 20:15 | NUR ---
RECEIVED PT IN BED, AWAKE. UNABLE TO FOLLOW COMMANDS. HX OF CEREBRAL PALSY AND DOWN SYNDROME. RESP. EVEN AND UNLABORED, [address] TENDS TO REMOVE NASAL CANNULA. SITTER AT THE BEDSIDE FOR SAFETY. NO DISTRESS NOTED. AMY, NS AT 100ML/HR, INTACT AND INFUSING VIA LFA, SITE CLEAR. ST ON THE MONITOR, NO EVIDENCE OF ANY DISCOMFORT. GT INTACT AND CLAMPED. GILBERT CATH INTACT AND DRAINING YESENIA COLOR URINE. ON AIR MATTRESS, NEEDS ASSIST. WITH TURNING AND REPOSITIONING. WILL CONTINUE TO MONITOR.
[2017-04-01 21:27] VITALS: BP 96/64
--- NOTE | 2017-04-02 00:34 | NUR ---
HAD X1 BROWNISH COLOR EMESIS , ABOUT 150ML, CLEANED AND KEPT COMFORTABLE . ZOFRAN 4MG IV GIVEN ORDERED.WILL CONTINUE TO MONITOR.
--- NOTE | 2017-04-02 01:46 | NUR ---
OCCA. NON PRODUCTIVE COUGH NOTED. MEDICATED WITH ROBITUSSIN VIA GT. WILL CONTINUE TO MONITOR.
--- NOTE | 2017-04-02 03:53 | NUR ---
RESTLESS, UNABLE TO SLEEP, DR DUQUE NOTIFIED. ORDER RECEIVED TO GIVE ATIVAN IV, MEDICATED WITH ATIVAN 1MG IV ORDERED. WILL CONTINUE TO MONITOR.
[2017-04-02 05:57] VITALS: BP 116/77
--- NOTE | 2017-04-02 06:26 | NUR ---
DOOZING OFF AND ON AT THIS TIME.RESP. EVEN AND UNLABORED. [address] SAT[address] WELL. NO DISTRESS NOTED. AFEBRILE AND VITAL SIGNS STABLE. IVF INTACT AND INFUSING WELL, SITE CLEAR. NO SEIZURE ACTIVITY NOTED. CONTACT ISOLATION PREC. MAINTAINED.KEPT COMFORTABLE. GT CLAMPED. NO N/V NOTED AT THIS TIME. SITTER AT THE BEDSIDE FOR SAFETY. WILL ENDORSE TO INCOMING NURSE.
[2017-04-02 07:02] LABS: BASOPHIL % 0.3 % (0-2); PLATELET COUNT 295 x10^3mcL (130-400)
[2017-04-02 07:05] LABS: CALCIUM 8.4 mg/dL (8.5-10.1); CARBON DIOXIDE 32.4 mmol/L (21-32); CHLORIDE SERUM 116 mmol/L (98-107); CREATININE SERUM 0.8 mg/dL (0.7-1.3); GFR1 > 60 mL/min; GLUCOSE SERUM 106 mg/dL (74-106); MAGNESIUM 2.2 mg/dL (1.8-2.4); PHOSPHOROUS 3.2 mg/dL (2.5-4.9); POTASSIUM SERUM 3.8 mmol/L (3.5-5.1); SODIUM SERUM 154 mmol/L (136-145)
[2017-04-02 07:12] LABS: RED CELL DISTRIBUTION WIDTH 15.4 % (11.5-14.5)
--- NOTE | 2017-04-02 08:00 | NUR ---
NON VERBAL, WITHDRAWS ARMS AND LEGS TO TOUCH, CARE. COUGHS IN YOUR FACE WHEN ATITATED WITH TOUCH/CARE. TELE # 32 SR. LUNGS CTA. O2 SAT WHEN LAYING FLAT FOR US CAROTID WAS 91%, INCREASED TO 4L NC FOR PURPOSE OF TESTING FOR CT HEAD AND FOR US CAROTID, O2 SAT 98% ON 4L NC. BS'S ACTIVE TIMES 4. GT CLAMPED. PERIPHERAL PULSES PALPABLE, NO EDEMA. SCD BLE. IV SITE TO [facility]I. MEDICAL ROUNDS OCCURED AT [address] PURVIS AMD THE MEDICINE TEAM. THEY WERE AWARE THAT PT WAS TOO AGITATED TO TOLERATE THE CT HEAD LAST NOC AND CURRENTLY NOT ABLE TO TOLERATE US CAROTID, HE CANT STAY STILL. THEY ORDERED ATIVAN 0.5 MG IVP FOR TESTING PURPOSES.
--- NOTE | 2017-04-02 08:15 | NUR ---
KARISSA CANO AND ROBERTO MCKINLEY HAD THE SUPERINTENDENT TRANSMISSION APPLY A PAULINA RESTRAINT AT 0815, TO RIGHT HAND, NOT TIED TO BED, FOR PURPOSES OF KEEPING HIM FROM REMOVING HIS O2 AND SO HE WONT PUT HIS FINGER IN HIS MOUTH AND JOMAR HIMSELF. PER NOC SHIFT HE STICKS HIS FINGER IN HIS MOUTH TO MAKE HIMSELF VOMIT.
[2017-04-02 09:31] VITALS: BP 109/73
[2017-04-02 12:00] VITALS: BP 109/73
[2017-04-02 13:09] VITALS: BP 99/64
--- NOTE | 2017-04-02 16:39 | NUR ---
I CLEANED THE GT SITE WITH WOUND CLEANSER, APPLIED A SPLIT GAUZE AND A SHON VALVE TO GT. PT KEPT TRYING TO PULL THE BLANKETS UP TO STOP ME, THEN WHEN I KEPT CLEANING HE BECAME AGITATED THEN SHOVED HIS LEFT FIST IN HIS MOUTH AND STARTED GAGGING. I PULLED IT OUT, THEN HE STARTED DIGGING IN HIS DIAPER AND THE LOOSE STOOL WAS ALL OVER HIS FINGERS AND IT WAS BLACK.I PAGED DR LEAL, TO TELL HER OF THE BLACK STOOL. THERE IS A GI CONSULT WITH DR BORREGO, HE HASNT COME YET.
--- NOTE | 2017-04-02 16:43 | NUR ---
DR LEAL AWARE OF THE BLACK STOOL AND THE PT DIGGING IN HIS DIAPER AND SHOVING HIS HAND IN HIS MOUTH. WE DID CLEAN HIS HANDS AND HE WILL BE CLEANED AND HIS DIAPER WILL BE BETTER SECURED.
--- NOTE | 2017-04-02 17:19 | NUR ---
Initial Nutrition Assessment Dx: Generalized weakness, leukocytosis PMHx: Down Syndrome,Cerebral Palsy and Seizures PSHx: G-tube placement Labs: (04/02) Na:154H, B, Ca:8.4L, H/H:11.6/36L(03/29)AST:38H, Meds: Antivert, Colace, Dulocolax, Humulin, Lactinex, NS IV, Theragran, Zofran Diet:Nutren 2.0 at 83ml/hr. 150ml q4hr FWF. TF intake: TF has not been initiated Ht: 61in, 5'1" Wt: 118#, 53.69kg BMI:22.4kg/m2 (normal) IBW: 112#,50kg %IBW: 105% UBW:unable to obtain due to pt non-verbal Weight hx: (02/2017) 125#, 56.69kg () 125#, 56.92kg (01/26/2017) 134#, 83kg Age:51 y/o male Food Allergies:NKFA per last assessmnet Skin:intact Naman:14 Edema:None GI:Active bowel sound Last BM:04/01 Nursing Trigger:admitted with potential risk diagnosis Pt admitted with disorder of ANS with genralized weakness, SIRS WBC 16.5 , HR:124 with no suspected source of infection. Spoke to Dr. Vo who requested TF order. RD gave TF recommendations but to start once Dr. Catalina caceres's pt. Dr. Vo requated to start TF due to pt with no symptoms of nausea or vomiting at this time. Spoke to charger operator, who agreed to wait to start TF once Dr. Arnold see's pt. Problem with: N: Yes V: Yes x 1 today D:pt with black tarry stool, per RN note, C:No Problems with: Chewing+Swallowing: pt with G-tube Current appetite: N/A Recent wt change:-7# wt loss within 1 month %wt change:5.6% severe Vitamin/Supplement use:Ferrous sulfate, MVI, Vitamin C per H&P Diet at home; Nutren 2.0 at 83ml/hr via pump 16hr/day (provides 2656kcal and 106g pro) per pt's chart. Physical activity: None Education: not appropriate due to pt with Cerebral palsy and down syndrome with no family at bedside. Estimated Nutritional Needs Based on actual body weight 54kg Energy: 2153kcal/d (13.9kcal/cm height for CP) Protein: 54-81g/d (1.2-1.5g/kg for repletion and SIRS) Fluid: 1350-1620ml/d (25-30mlkg for maintenance) or per doctor Nutrition Diagnosis 1. Unintentional wt loss related to pt with episodes of vomiting x 1.5 months ago as evidenced by 7 pound wt loss and 5.6% weight change within 1 month. Intervention 1. When medically appropriate, recommend initiation of TF Nutren 2.0 at 20ml/hr increase 10ml q6hr to goal rate of 45ml/hr, free water flush 100ml q4hr. This provides 2160kcal, 91g pro and 1347ml free water daily. This meets 100% caloric needs and 89% protein needs. Monitor/Evaluate Goal: initiation of TF Monitor: initiation of TF, Labs, GI function F/U in 2-3 days as high risk:04/04-
--- NOTE | 2017-04-02 17:47 | NUR ---
ALERT, CONFUSED, FLEXES ARMS AND LEGS WITH CARE. HE GRINDS HIS TEETH. WHEN HE IS ANXIOUS WITH CARE HE TRIES TO PUSH HIS WHOLE FIST INTO HIS MOUTH, I WAS ABLE TO INTERUPT THIS, BUT HE IS FAST. GT FEEDING NUTREN 2.0 WAS STARTED AT 1740. IV SITE LFA CDI. GILBERT CATH DRAINED YELLOW URINE 350 ML TO BSD BAG.
[2017-04-02 17:52] VITALS: BP 95/61
[2017-04-02 19:35] VITALS: BP 104/64
--- NOTE | 2017-04-02 20:02 | NUR ---
FEEDING HELD AT THIS TIME DUE TO RESIDUAL OF 230 FROM G-TUBE. G-TUBE IN PLACE HEARD BY ASCULATION AND CONFIRMED BY KUB. HOB ELEVATED FOR ASPIRATION PRECAUTIONS. SITTER-DANIELE BY BEDSIDE.
--- NOTE | 2017-04-02 21:17 | NUR ---
RESTARTED TUBE FEEDING AT 20 ML/HR. ONLY 10 CC OF RESIDUAL FLUID NOTED AT THIS TIME. WILL CONTINUE TO MONITOR.
--- NOTE | 2017-04-02 23:06 | NUR ---
RE-CHECKED PATIENT'S RESIDUAL FLUIDS VIA G-TUBE. REMOVED 200CC OF FLUIDS FROM G-TUBE. WILL CONTINUE AND MONITOR. HOB ELEVATED, SEIZURE PRECAUTIONS IN PLACE
--- NOTE | 2017-04-03 00:27 | NUR ---
RECHECKED RESIDUAL 50CC REMOVAL FROM G-TUBE. FOLLOWING DIETARY ORDERS, FEEDING RATE NOW AT 30ML/HR. HOB ELEVATED AND ALL OTHER SAFETY MEASURES IN PLACE. WILL CONTINUE TO MONITOR.
--- NOTE | 2017-04-03 01:53 | NUR ---
PATIENT PUTTING HANDS IN HIS MOUTH IN ATTEMPT TO MAKE HIMSELF VOMIT. ONE MITTEN ON LEFT HAND, NOT TIED. SITTER BY BEDSIDE AND MEDICATION GIVEN. RESIDUAL FLUIDS RE-CHECKED 20CC REMOVED.
--- NOTE | 2017-04-03 03:29 | NUR ---
PATIENT QUIETLY RESTING IN BED AT THIS TIME. PER LOCO, PATIENT HASN'T TRIED TO PLACE HANDS IN HIS MOUTH AT THIS TIME. WILL CONTINUE TO MONITOR.
--- NOTE | 2017-04-03 05:42 | NUR ---
REMOVED MORE THAN 250CC OF RESIDUAL FLUID FROM G-TUBE. FEEDING ON HOLD AT THIS TIME.
[2017-04-03 05:44] VITALS: BP 111/77
[2017-04-03 06:12] LABS: BASOPHIL % 0.4 % (0-2); PLATELET COUNT 300 x10^3mcL (130-400)
--- NOTE | 2017-04-03 06:13 | NUR ---
UPON CHANGING PATIENT, REDNESS NOTED TO SACRUM. Z-GUARD APPLIED.
[2017-04-03 06:44] LABS: CALCIUM 8.5 mg/dL (8.5-10.1); CARBON DIOXIDE 28.6 mmol/L (21-32); CHLORIDE SERUM 111 mmol/L (98-107); CREATININE SERUM 0.8 mg/dL (0.7-1.3); GFR1 > 60 mL/min; GLUCOSE SERUM 105 mg/dL (74-106); MAGNESIUM 2.4 mg/dL (1.8-2.4); PHOSPHOROUS 2.5 mg/dL (2.5-4.9); POTASSIUM SERUM 3.8 mmol/L (3.5-5.1); SODIUM SERUM 148 mmol/L (136-145)
[2017-04-03 06:48] LABS: RED CELL DISTRIBUTION WIDTH 15.1 % (11.5-14.5)
--- NOTE | 2017-04-03 06:54 | NUR ---
ASSISTED MICHAEL SANABRIA TO CHANGE PATIENT. GILBERT CATHETER CARE PROVIDED WELL. Z-GUARD APPLIED TO SCROTUM DUE TO REDNESS.
--- NOTE | 2017-04-03 07:26 | NUR ---
DR. LEAL AWARE OF PATIENT HAVING DARK LOOSE STOOLS, NOT TOLERATING FEEDING WELL THROUGHOUT NIGHT AND REDNESS ON SCROTUM.
--- NOTE | 2017-04-03 07:30 | NUR ---
RC'D PT RESTING IN BED WITH NO APPARENT SIGNS OF DISTRESS. PT IA AWAKE AND NONVERBAL, SEIZURE AND ASPIRATION PRECAUTIONS IN PLACE. ON TELE. NO APPARENT SIGNS OF DISTRESS. WEAK PALP PULSES IN BLE, NO EDEMA NOTED. RESPIRATIONS EQUAL AND UNLABORED BILAT. LUNGS DIM IN BASES. ON 2L O2 VIA NC, NO APPARENT SIGNS OF SOB. ABDOMEN DISTENDED AND NONTENDER. ACTIVE BS. NO APPARENT N/V. GILBERT CATHTER IN PLACE. SCROTUM RED AND IRRITAED, ZGUARD APPLIED. GERNERALIZED WEAKNESS, BED BOUND. SKIN W/D. NO APPARENT SIGNS OF PAIN AT THIS TIME. IV PATENT AND INFUSING. BED IN LOW POSITION. BLOCK BREAKER PRESENT AT BEDSIDE. WILL COTINUE TO MONITOR.
[2017-04-03 09:57] VITALS: BP 104/59
--- NOTE | 2017-04-03 10:07 | NUR ---
PT TAKEN DOWN TO GI LAB FOR EGD PROCEDURE. WORD PROCESSOR TECHNICIAN NOTIFIED.
[2017-04-03 11:45] VITALS: BP 83/59
--- NOTE | 2017-04-03 12:45 | NUR ---
RECEIVED PT.CAME FROM GI LAB ON HIS BED, LETHARGIC BUT AROUSABLE. W/ IVF NS 500CC ON RT FOREARM. B/P- AND WILL MONITOR. IVF CHANGE BACK TO 1/2NS. ABD. DRESSING DRY AND INTACT. W/ GT TUBE IN PLACE.
[2017-04-03 14:00] VITALS: BP 91/49
--- NOTE | 2017-04-03 15:01 | NUR ---
PT RESTING IN BED WITH NO APPARENT SIGNS OF DISTRESS. RESPIRATIONS EQUAL AND UNLABORED BILAT. BED IN LOW POSITION. CALL LIGHT IN REACH. BULK TRUCK DRIVER PRESENT AT BEDSIDE. WILL CONTINUE TO MONITOR
[2017-04-03 17:29] VITALS: BP 91/53
--- NOTE | 2017-04-03 18:37 | NUR ---
PT RESTING IN BED WITH NO APPARENT SIGNS OF DISTRESS. ON 2L O2 VIA NC. ON TELE 1. REDNESS AND IRRITATION IN SCROTUM AREA, ZGUARD APPLIED. IV PATENT AND INFUSING. COTINOUS GTUBE FEEDINGS WITH NUTREN RUNNING AT 30ML/HR. BED IN LOW POSITION. CALL LIGHT IN REACH. HOT DOG VENDER AT BEDSIDE. WILL ENDORSE TO FASHION JOURNALIST.
--- NOTE | 2017-04-03 20:00 | NUR ---
PATIENT AWAKE, ALERT, NONVERBAL, MENTALLY DISABLED. RESPIRATION EVEN AND UNLABORED, ON O2 2L PER NASAL CANNULA, ON RT PROTOCOL. ONGOING 0.45% NS AT 100 CC/HR INFUSING WELL AT THE LEFT FOREARM. G-J TUBE PATENT AND INTACT. GILBERT CATHETER TO GRAVITY DRAINING YESENIA COLORED URINE. GENERALIZED WEAKNESSS, BEDBOUND. REDNESS TO SCROTUM. 1:1 SITTER AT THE BEDSIDE FOR SAFETY. ON TELE #1. WILL CONTINUE TO MONITOR.
[2017-04-03 21:31] VITALS: BP 92/59
[2017-04-04 04:33] VITALS: BP 91/50
--- NOTE | 2017-04-04 06:01 | NUR ---
PATIENT AWAKE IN BED, NOT IN ANY RESPIRATORY DISTRESS. G-J TUBE TO TUBE FEEDING PATENT AND INTACT TOLERATING WELL. GILBERT CATHETER TO GRAVITY DRAINING YESENIA COLORED URINE. IV SITE NO SIGN OF INFILTRATION. ASSISTED WITH NEEDS. SAFETY OBSERVED. 1:1 SITTER AT THE BEDSIDE FOR SAFETY. WILL CONTINUE TO MONITOR.
[2017-04-04 06:07] LABS: CALCIUM 7.8 mg/dL (8.5-10.1); CARBON DIOXIDE 30.1 mmol/L (21-32); CHLORIDE SERUM 110 mmol/L (98-107); CREATININE SERUM 0.8 mg/dL (0.7-1.3); GFR1 > 60 mL/min; GLUCOSE SERUM 107 mg/dL (74-106); SODIUM SERUM 146 mmol/L (136-145)
[2017-04-04 06:17] LABS: BASOPHIL % 0.4 % (0-2); PLATELET COUNT 284 x10^3mcL (130-400)
[2017-04-04 06:24] LABS: RED CELL DISTRIBUTION WIDTH 15.1 % (11.5-14.5)
--- NOTE | 2017-04-04 07:10 | NUR ---
RECEIVED Pt. AWAKE AND ALERT, NON VERBAL. NO SIGNS OF PAIN/DISCOMFORT AT THIS TIME. RESPIRATIONS EVEN AND UNLABORED. NUTREN 2.0 AT 40 ML/HR TO J TUBE PORT NO RESIDUAL NOTED AT THIS TIME. G TUBE PORT DRAINING VIA GRAVITY SMALL AMOUNT GREENISH DRAINAGE NOTED. HOB ELEVATED. G TUBE DSG CDI. GILBERT CATHETER YESENIA URINE NOTED. 1/2 NS RUNNING TO IV IV LFA PATENT AND INTACT. BED LOW/LOCKED. CALL LIGHT IN REACH. WILL CONTINUE TO MONITOR.
--- NOTE | 2017-04-04 08:30 | NUR ---
MADE ROUNDS WITH DR. PURVIS AND MEDICINE TEAM, Pt. POSSIBLE DISCHARGE TOMMORROW BACK TO [facility].
[2017-04-04 09:00] VITALS: BP 94/59
[2017-04-04 12:40] VITALS: BP 104/54
--- NOTE | 2017-04-04 14:52 | NUR ---
Follow-up Nutrition Assessment Dx:Generalized weakness and Leukocytosis Labs: (04/04) NA:146H, BH, Ca:7.8L, H/H:9.8/30L Meds: Antivert, Cephulac, Dulcolax, Ferrous sulfate , Folic acid, Humulin PRN, KCL, Lactinex, Protonix, Theragran, Zofran Current Nutrition Support: TF Nutren 2.0 via J-tube at 45ml/hr. Free water flush:100ml q4hr. TF intake: 04/03:270ml, 04/04:360ml I/O: (04/03) 2890/700 (+2190ml) (04/04) 2700/204 (+2496ml) Residuals: 04/04: 0ml, 04/03:>250ml Weights: 04/01:118#, 04/04:125# with equipment and blankets Skin: redness to scrotom Edema: trace to BLE Last BM: 04/03 x11 loose stools Per progress note 04/04, EGD showed hiatal hernia, severe gastroparesis and GERD. Catalina Hernández replaced G-tube feeding conversion to GJ tube due to severe gastroparesis and GERD. Dr. Arnold mentioned that due to intolerance of G tube feeding, conversion to GJ tube was performed, if patient keep pulling tube then permanent J tube may be necessary. During visit observed pt laying in bed with TF of Nutren 2.0 running at 45ml/hr, free water flush 100ml q4hr. Spoke to SHEET MUSIC SALESPERSON who reports pt no longer with multiple loose bloody stools. Pt with BM x2 (formed with normal color) today. Pt continues to self-induce vomit x4 today but small amounts. Spoke to case management about TF recommendations and pt receives Nutren 2.0 from 9340-5245 at 83ml/hr (provides 2656 kcal and 106g pro) at facility. RD recommended TF Nutren at goal rate of 70ml/hr, free water flush 100ml q4hr to better meet pts est needs. Per bed huddle this morning, pt will possibly discharge tomorrow. Estimated Nutritional Needs unchanged from prior assessment:Actual body weight:54kg Energy: 2153kcal/day (13.9kcal/cm height for CP)) Protein: 54-81g/day (1.2-1.5g/kg for repletion and SIRS) Fluid: 1350-1620ml/day (25-30ml/kg for maintenance) or per doctor Nutrition Diagnosis 1. Unintentional wt loss related to pt with episodes of vomiting x 1.5 months as evidenced by 7 pound weight loss and 5.6% weight change within 1 month (ongoing) Intervention 1. Recommend continue with TF Nutren 2.0 at 45ml/hr, free water flush 100ml q4hr. This provides 2160kcal, 91g pro and 1347ml free water daily. This meets 100% caloric needs and 89% protein needs. 2. Discharge recommendations: Recommend TF of Nutren 2.0 from 2464-4847 at goal 70ml/hr, free water flush 100ml q4hr. This provides 2240kcal, 89g pro and 1387ml free water daily. This meets 104% caloric needs and 110% protein needs. Monitor/Evaluate Previous goal: Initiaiton of TF (met) Goal: TF to meet at least 75% of estimated needs and diarrhea resolved Monitor: TF intake/tolerance, Labs, GI function F/U in 2-3days as high risk: 04/06-
--- NOTE | 2017-04-04 14:54 | NUR ---
1. Recommend continue with TF Nutren 2.0 at 45ml/hr, free water flush 100ml q4hr. This provides 2160kcal, 91g pro and 1347ml free water daily. This meets 100% caloric needs and 89% protein needs. 2. Discharge recommendations: Recommend TF of Nutren 2.0 from 7779-0383 at goal 70ml/hr, free water flush 100ml q4hr. This provides 2240kcal, 89g pro and 1387ml free water daily. This meets 104% caloric needs and 110% protein needs.
[2017-04-04 17:35] VITALS: BP 109/59
--- NOTE | 2017-04-04 18:05 | NUR ---
Pt. AWAKE AND ALERT, NON VERBAL. NO SIGNS PAIN/DISCOMFORT. NO DISTRESS NOTED. NUTREN 2.0 RUNNING AT 45 ML/HR TOLERATED WELL NO RESIDUAL NOTED FROM J TUBE PORT. G TUBE CLAMPED AT THIS TIME DUE TO POST GIVING MEDS. FEEDING TUBE SITE WITH DSG CDI. GILBERT CATHETER DRAINAING YESENIA URINE. Z GUARD APPLIED TO REDNESS IN SCROTUM NEEDED AND SCD/AIR MATTRESS/SZ PRECAUTIONS IN PLACE. IV RFA SALINE LOCKED, FLUSHES WELL. BED LOW/LOCKED. CALL LIGHT IN REACH,
--- NOTE | 2017-04-04 20:00 | NUR ---
RECEIVED PATIENT AWAKE, ALERT, NONVERBAL. PATIENT IS MENTALLY CHALLENGED. RESPIRATION EVEN AND UNLABORED, ON ROOM AIR. SALINE LOCK TO THE RIGHT FOREARM. ONGOING TUBE FEEDING NUTREN 2.0 AT 45 ML/HR TOLERATING WELL VIA GASTROJEJUNOSTOMY TUBED. GILBERT CATHETER TO GRAVITY DRAINING YESENIA COLORED URINE. GENERALIZED WEAKNESS. BEDBOUND. TOTAL CARE. REDNESS TO SCROTUM. Z GUARD APPLIED. ON AIR MATTRESS. ON TELE #1. WILL CONTINUE TO MONITOR.
[2017-04-04 22:00] VITALS: BP 108/58
[2017-04-05 05:33] VITALS: BP 110/71
--- NOTE | 2017-04-05 05:58 | NUR ---
PATIENT RESTING IN BED. RESPIRATION EVEN AND UNLABORED, ON ROOM AIR, ON CONTINUOUS PULSE OXIMETRY. GASTROJEJUNOSTOMY TUBE TO TUBE FEEDING- NUTREN 2.0 AT 45 ML/HR TOLERATING WELL. NO RESIDUAL NOTED. GILBERT CATHETER TO GRAVITY DRAINING YESENIA COLORED URINE. KEPT CLEAN AND DRY. 1:1 SITTER AT THE BEDSIDE FOR SAFETY.
[2017-04-05 06:05] LABS: BASOPHIL % 0.3 % (0-2); PLATELET COUNT 282 x10^3mcL (130-400)
[2017-04-05 06:20] LABS: CALCIUM 8.1 mg/dL (8.5-10.1); CARBON DIOXIDE 24.9 mmol/L (21-32); CHLORIDE SERUM 111 mmol/L (98-107); CREATININE SERUM 0.6 mg/dL (0.7-1.3); GFR1 > 60 mL/min; GLUCOSE SERUM 129 mg/dL (74-106); POTASSIUM SERUM 3.7 mmol/L (3.5-5.1); SODIUM SERUM 142 mmol/L (136-145)
[2017-04-05 06:23] LABS: RED CELL DISTRIBUTION WIDTH 15.2 % (11.5-14.5)
--- NOTE | 2017-04-05 07:15 | NUR ---
PT WAS ENDORSE TO ME THIS MORNING. AWAKE AND ALERT, NONVERBAL. MENTALLY CHALLENGED. TELE 1, ST. HR 101. BREATHING EVEN AND UNLABORED ON RA. NO RESP DISTRESS OR SOB NOTED. PT IS HEPLOCKED TO THE RFA. ONGOING TUBE FEEDING NUTREN 2.0 AT 45 ML/HR, TOLERATING WELL VIA GASTROJEJUNOSTOMY TUBE. TUBE INTACT AND PATENT. GILBERT CATHETER TO GRAVITY /DRAINING YESENIA COLORED URINE. PT IS BEDBOUND ON AIRMATRESS. TOTAL CARE. REDNESS TO SCROTUM, ZGRARD APPLIED. BED IN LOW POSITION, BY NURSE LORENE, BED ALARM ON. WILL CONTINUE PLAN OF CARE.
[2017-04-05] MEDS ORDERED: PROTONIX40 MG/Pac1 GT (07:51)
[2017-04-05 10:53] VITALS: BP 106/69
--- NOTE | 2017-04-05 11:10 | NUR ---
PER DOCTOR ELVIS ORDERS STOP J TUBE FEEDING. FLUSHED J TUBE. INTACT AND PATENT.
--- NOTE | 2017-04-05 12:20 | NUR ---
PER DOCTORS ORDERS REMOVED PT GILBERT, 200ML OF LIGHT YELLOW WAS TAKEN OUT OF GILBERT. PT TOLERATED REMOVAL WELL.
[2017-04-05 12:58] VITALS: BP 106/69
--- NOTE | 2017-04-05 13:00 | NUR ---
REMOVED PT IV TO THE RFA, PT TOLERATED WELL.
[2017-04-05 13:27] VITALS: BP 101/64
--- NOTE | 2017-04-05 14:00 | NUR ---
PT IS UNABLE TO SIGN DISCHARGE INSTRUCTIONS. MYSELF AND VAUGHN RN/ SIGNED DISCHARGE INSTRUCTIONS. PT ALERT AND AWAKE. NON VERBAL. REMOVED TELE 1. PT G/J TUBE IN HEPLOCKED, PATENT AND INTACT. CALL LIGHT IN REACH. BY NURSE STATION.
--- NOTE | 2017-04-05 15:16 | NUR ---
STAFF FROM BOARD AND CARE AT BEDSIDE TO ZONE MAINTENANCE TECHNICIAN THE PT. DISCHARGE PAPERWORKS ARE GIVEN. ALL QUESTIONS ARE ANSWERED. PT W/ G-TUBE CLAMPED. PT TO BE WHEELED DOWN BY SUPERINTENDENT WATER AND SEWER SYSTEMS TO LOBBY AREA.
--- NOTE | 2017-04-05 15:20 | NUR ---
PT WAS PICKED PT BY [facility]. PT ALERT AND AWAKE. BREATHING EVEN AND UNLABORED. NO RESP DISTRESS OR SOB NOTED. NO SIGNS OF PAIN OR DISCOMFORT NOTED. MICHAEL RENEE WHEELED PT DOWN TO LOBBY.
== END 2017-04-05 15:20 | disposition home health service (06) | DRG 177 ==
LOC: ED 12:31 → DU 15:30
PROVIDERS: Emergency Medicine; Family Medicine Sports Medicine; Internal Medicine Gastroenterology; ADMIT Student in an Organized Health Care Education/Training Program
PROC: 0DB78ZX Excision of Stomach, Pylorus, Via Natural or Artificial Opening Endoscopic, Diagnostic (ICD-10-PCS; principal; 2017-04-03 10:00)
PROC: 0DHA8UZ Insertion of Feeding Device into Jejunum, Via Natural or Artificial Opening Endoscopic (ICD-10-PCS; 2017-04-03 10:00)
DX: J69.0 Pneumonitis due to inhalation of food and vomit (principal); N17.0 Acute kidney failure with tubular necrosis; G80.0 Spastic quadriplegic cerebral palsy; F73 Profound intellectual disabilities; F84.0 Autistic disorder; E87.0 Hyperosmolality and hypernatremia; E44.0 Moderate protein-calorie malnutrition; G90.9 Disorder of the autonomic nervous system, unspecified; E83.41 Hypermagnesemia; K44.9 Diaphragmatic hernia without obstruction or gangrene; K21.9 Gastro-esophageal reflux disease without esophagitis; K31.84 Gastroparesis; J47.9 Bronchiectasis, uncomplicated; G40.909 Epilepsy, unspecified, not intractable, without status epilepticus; E78.5 Hyperlipidemia, unspecified; E87.8 Other disorders of electrolyte and fluid balance, not elsewhere classified; Z93.1 Gastrostomy status; Q90.9 Down syndrome, unspecified; Z68.22 Body mass index [BMI] 22.0-22.9, adult
CPT/HCPCS: 36600; 43235; 82962; 83880; 97110-GP; G0480; J1200; J1610; J2060; J2250; J2310; J2405; J2543; J2765; J3010; J3480; J3490; J7030; J7620; Q0092; Q9967

== ENCOUNTER 2017-04-07 21:38 | Inpatient (IN) | payer OTHER, MEDICAID ==
[~2017-04-07] VITALS: Ht 154.9 cm; Wt 53.5 kg
[~2017-04-07 21:38] MED LIST changes: +ACETAMINOP160 MG/52 GT; +BISAC-EVAC10 MG RC; +ETHAMBUTOL HCL400 MG GT; +FERL GT; +FLEET ENEMA135 ML RC; +GOODSENSE100 MG/5 M GT; +HM COMPLETE MU1 EACH GT; +METOCLOPRAM5 MG/5 M3 GT; +NUTREN 2.0250 ML GT; +PHARMASSURE VI500 MG GT; +PHENYLEPHRINE GT; +PROTONIX40 MG/Pac1 GT; +QUALITY CHOICE200 MG GT; +VITAMIN B-650 M2 GT; +ZOF4 GT
[2017-04-07 23:42] LABS: BASOPHIL % 0.1 % (0-2)
[2017-04-07 23:48] LABS: PLATELET COUNT 480 x10^3mcL (130-400); RED CELL DISTRIBUTION WIDTH 15.6 % (11.5-14.5)
[2017-04-07 23:50] LABS: ALKALINE PHOSPHATASE 58 U/L (46-116); ALT/SGPT 48 U/L (16-63); AMYLASE 44 U/L (25-115); AST/SGOT 33 U/L (15-37); BILIRUBIN TOTAL 0.4 mg/dL (0.20-1.00); CALCIUM 9.4 mg/dL (8.5-10.1); CARBON DIOXIDE 32.7 mmol/L (21-32); CHLORIDE SERUM 105 mmol/L (98-107); CREATININE SERUM 0.9 mg/dL (0.7-1.3); GFR1 > 60 mL/min; GLUCOSE SERUM 138 mg/dL (74-106); LIPASE 254 IU/L (73-393); POTASSIUM SERUM 4.8 mmol/L (3.5-5.1); SODIUM SERUM 144 mmol/L (136-145); TOTAL PROTEIN, SERUM 7.6 g/dL (6.4-8.2)
[2017-04-07 23:51] LABS: ALBUMIN 2.8 g/dL (3.4-5.0)
[2017-04-08 00:06] LABS: UA SPECIFIC GRAVITY 1.025 (1.005-1.035); microscopic required? YES; urine erythrocyte 3+ (NEGATIVE)
[2017-04-08 02:54] LABS: CHOLESTEROL/HDL RATIO 3.6; MAGNESIUM 2.4 mg/dL (1.8-2.4); PHOSPHOROUS 3.5 mg/dL (2.5-4.9)
[2017-04-08 02:55] VITALS: BP 101/72
[2017-04-08 02:57] LABS: T3 TOTAL 1.12 ng/mL
[2017-04-08 03:01] LABS: FREE T4 0.97 ng/dL (0.76-1.46); FREE THYROXINE INDEX 2.8 ug/dL (1.4-4.5); T4(THYROXINE) 8.6 ug/dL (4.7-13.3)
[2017-04-08 05:32] VITALS: BP 95/68
[2017-04-08 07:18] LABS: CALCIUM 8.3 mg/dL (8.5-10.1); CARBON DIOXIDE 29.6 mmol/L (21-32); CHLORIDE SERUM 107 mmol/L (98-107); CREATININE SERUM 0.7 mg/dL (0.7-1.3); GFR1 > 60 mL/min; GLUCOSE SERUM 117 mg/dL (74-106); MAGNESIUM 2.2 mg/dL (1.8-2.4); PHOSPHOROUS 3.4 mg/dL (2.5-4.9); POTASSIUM SERUM 3.9 mmol/L (3.5-5.1); SODIUM SERUM 144 mmol/L (136-145)
[2017-04-08 07:42] LABS: BASOPHIL % 0.3 % (0-2)
[2017-04-08 07:46] LABS: PLATELET COUNT 408 x10^3mcL (130-400); RED CELL DISTRIBUTION WIDTH 15.5 % (11.5-14.5)
[2017-04-08 08:00] VITALS: BP 98/63
[2017-04-08 13:35] VITALS: BP 106/69
[2017-04-08 17:40] VITALS: BP 99/62
[2017-04-09 06:19] VITALS: BP 97/68
[2017-04-09 06:19] LABS: BASOPHIL % 0.8 % (0-2); PLATELET COUNT 386 x10^3mcL (130-400)
[2017-04-09 06:42] LABS: CALCIUM 8.2 mg/dL (8.5-10.1); CARBON DIOXIDE 28.6 mmol/L (21-32); CHLORIDE SERUM 111 mmol/L (98-107); CREATININE SERUM 0.7 mg/dL (0.7-1.3); GFR1 > 60 mL/min; GLUCOSE SERUM 120 mg/dL (74-106); POTASSIUM SERUM 4.2 mmol/L (3.5-5.1); SODIUM SERUM 147 mmol/L (136-145)
[2017-04-09 06:49] LABS: RED CELL DISTRIBUTION WIDTH 15.1 % (11.5-14.5)
[2017-04-09 17:43] VITALS: BP 89/44
[2017-04-10 01:00] VITALS: BP 108/58
[2017-04-10 05:42] VITALS: BP 118/72
[2017-04-10 10:30] LABS: CARBON DIOXIDE 29.9 mmol/L (21-32); CHLORIDE SERUM 111 mmol/L (98-107); CREATININE SERUM 0.6 mg/dL (0.7-1.3); GFR1 > 60 mL/min; GLUCOSE SERUM 104 mg/dL (74-106); SODIUM SERUM 144 mmol/L (136-145)
[2017-04-10 13:17] LABS: BASOPHIL % 0.3 % (0-2); PLATELET COUNT 355 x10^3mcL (130-400)
[2017-04-10 13:29] LABS: RED CELL DISTRIBUTION WIDTH 15.5 % (11.5-14.5)
[2017-04-10 14:09] VITALS: BP 108/72
[2017-04-10 17:36] VITALS: BP 110/69
[2017-04-10 21:18] VITALS: BP 97/53
[2017-04-11 05:01] VITALS: BP 123/82
[2017-04-11 06:58] LABS: CALCIUM 8.2 mg/dL (8.5-10.1); CARBON DIOXIDE 29.1 mmol/L (21-32); CHLORIDE SERUM 108 mmol/L (98-107); CREATININE SERUM 0.6 mg/dL (0.7-1.3); GFR1 > 60 mL/min; GLUCOSE SERUM 133 mg/dL (74-106); MAGNESIUM 2.1 mg/dL (1.8-2.4); PHOSPHOROUS 2.2 mg/dL (2.5-4.9); POTASSIUM SERUM 3.9 mmol/L (3.5-5.1); SODIUM SERUM 143 mmol/L (136-145)
[2017-04-11 07:25] LABS: BASOPHIL % 1.4 % (0-2); PLATELET COUNT 383 x10^3mcL (130-400); RED CELL DISTRIBUTION WIDTH 14.1 % (11.5-14.5)
[2017-04-11 09:25] VITALS: BP 111/55
[2017-04-11] MEDS ORDERED: AUG500 GT (12:39)
[2017-04-11 13:12] VITALS: BP 99/69
[2017-04-11 14:45] VITALS: BP 99/69
[2017-04-11] MEDS ORDERED: ROBAFEN100 MG/5 M GT (14:53)
[2017-04-12] MEDS ORDERED: SEROQUEL100 MG GT (09:25)
[2017-04-12] MEDS ORDERED: ESOMEPRAZOLE MA40 MG GT (09:26)
[2017-04-12] MEDS ORDERED: SUNMARK S (09:26)
== END 2017-04-11 16:47 | DRG 689 ==
LOC: ED 21:38 → DU 04-08 01:38 → MU 04-11 10:42
PROVIDERS: Emergency Medicine; Family Medicine; ADMIT Student in an Organized Health Care Education/Training Program
DX: N39.0 Urinary tract infection, site not specified (principal); G93.41 Metabolic encephalopathy; E43 Unspecified severe protein-calorie malnutrition; N17.0 Acute kidney failure with tubular necrosis; G80.0 Spastic quadriplegic cerebral palsy; K22.10 Ulcer of esophagus without bleeding; E86.0 Dehydration; K44.9 Diaphragmatic hernia without obstruction or gangrene; K94.29 Other complications of gastrostomy; R31.9 Hematuria, unspecified; R80.9 Proteinuria, unspecified; M41.30 Thoracogenic scoliosis, site unspecified; J30.9 Allergic rhinitis, unspecified; Z68.22 Body mass index [BMI] 22.0-22.9, adult
CPT/HCPCS: 82962; 83880; 84439; J0696; J0713; J2405; J7030; J7040; J7050; J8597; Q0092; Q9967

== ENCOUNTER 2017-04-12 07:37 | Inpatient (IN) | payer OTHER, MEDICAID ==
[~2017-04-12] VITALS: Ht 167.6 cm; Wt 50.5 kg
[~2017-04-12 07:37] MED LIST changes: +AUG500 GT
[2017-04-12 08:12] LABS: BASOPHIL % 1.1 % (0-2); PLATELET COUNT 382 x10^3mcL (130-400)
[2017-04-12 08:20] LABS: CALCIUM 8.8 mg/dL (8.5-10.1); CARBON DIOXIDE 34.2 mmol/L (21-32); CHLORIDE SERUM 108 mmol/L (98-107); CREATININE SERUM 0.7 mg/dL (0.7-1.3); GFR1 > 60 mL/min; GLUCOSE SERUM 106 mg/dL (74-106); POTASSIUM SERUM 4.7 mmol/L (3.5-5.1); RED CELL DISTRIBUTION WIDTH 15.7 % (11.5-14.5); SODIUM SERUM 147 mmol/L (136-145)
[2017-04-12 08:24] LABS: ALKALINE PHOSPHATASE 52 U/L (46-116); ALT/SGPT 37 U/L (16-63); AST/SGOT 41 U/L (15-37); CHOLESTEROL 163 mg/dL (<200); CHOLESTEROL/HDL RATIO 3.7; HDL CHOLESTEROL 44 mg/dL (40-60); TOTAL PROTEIN, SERUM 6.4 g/dL (6.4-8.2); TRIGLYCERIDES 92 mg/dL (<150)
[2017-04-12 08:25] LABS: ALBUMIN 2.3 g/dL (3.4-5.0)
[2017-04-12] MEDS ORDERED: SEROQUEL100 MG GT (09:25)
[2017-04-12] MEDS ORDERED: ESOMEPRAZOLE MA40 MG GT (09:26)
[2017-04-12] MEDS ORDERED: SUNMARK S (09:26)
[2017-04-12 10:16] LABS: MAGNESIUM 2.3 mg/dL (1.8-2.4); PHOSPHOROUS 3.5 mg/dL (2.5-4.9)
[2017-04-12 10:27] LABS: FREE T4 0.86 ng/dL (0.76-1.46); FREE THYROXINE INDEX 1.9 ug/dL (1.4-4.5); T4(THYROXINE) 5.9 ug/dL (4.7-13.3)
[2017-04-12 10:28] LABS: T3 TOTAL 1.35 ng/mL
[2017-04-12 13:36] VITALS: BP 98/62
[2017-04-12 17:25] VITALS: BP 103/65
[2017-04-12 20:09] VITALS: BP 103/69
[2017-04-13 06:43] LABS: BASOPHIL % 0.5 % (0-2); PLATELET COUNT 331 x10^3mcL (130-400)
[2017-04-13 06:50] LABS: CHLORIDE SERUM 110 mmol/L (98-107); CREATININE SERUM 0.6 mg/dL (0.7-1.3); GFR1 > 60 mL/min; GLUCOSE SERUM 136 mg/dL (74-106); POTASSIUM SERUM 3.7 mmol/L (3.5-5.1); SODIUM SERUM 143 mmol/L (136-145)
[2017-04-13 07:07] LABS: RED CELL DISTRIBUTION WIDTH 15.5 % (11.5-14.5)
[2017-04-14 05:30] VITALS: BP 106/74
[2017-04-14 06:25] LABS: CARBON DIOXIDE 29.6 mmol/L (21-32); CHLORIDE SERUM 106 mmol/L (98-107); GLUCOSE SERUM 94 mg/dL (74-106); POTASSIUM SERUM 4.1 mmol/L (3.5-5.1); SODIUM SERUM 139 mmol/L (136-145)
[2017-04-14 07:08] LABS: BASOPHIL % 0.4 % (0-2); PLATELET COUNT 308 x10^3mcL (130-400); RED CELL DISTRIBUTION WIDTH 16.2 % (11.5-14.5)
[2017-04-14 07:22] LABS: CREATININE SERUM 0.6 mg/dL (0.7-1.3); GFR1 > 60 mL/min
[2017-04-14 07:27] LABS: CALCIUM 7.9 mg/dL (8.5-10.1)
[2017-04-14 09:28] VITALS: BP 97/72
[2017-04-14 21:47] VITALS: BP 114/68
[2017-04-15 05:39] VITALS: BP 109/72
[2017-04-15 06:46] LABS: BASOPHIL % 0.3 % (0-2); PLATELET COUNT 318 x10^3mcL (130-400)
[2017-04-15 07:24] LABS: RED CELL DISTRIBUTION WIDTH 15.8 % (11.5-14.5)
[2017-04-15 07:42] LABS: CARBON DIOXIDE 28.1 mmol/L (21-32); CHLORIDE SERUM 104 mmol/L (98-107); CREATININE SERUM 0.6 mg/dL (0.7-1.3); GFR1 > 60 mL/min; GLUCOSE SERUM 113 mg/dL (74-106); POTASSIUM SERUM 3.9 mmol/L (3.5-5.1); SODIUM SERUM 137 mmol/L (136-145)
[2017-04-15 09:00] VITALS: BP 121/75
[2017-04-15 21:34] VITALS: BP 95/59
[2017-04-16 06:55] VITALS: BP 109/59
[2017-04-16 07:24] LABS: BASOPHIL % 0.2 % (0-2); PLATELET COUNT 308 x10^3mcL (130-400)
[2017-04-16 07:27] LABS: RED CELL DISTRIBUTION WIDTH 15.8 % (11.5-14.5)
[2017-04-16 07:47] LABS: CALCIUM 8.4 mg/dL (8.5-10.1); CHLORIDE SERUM 105 mmol/L (98-107); CREATININE SERUM 0.6 mg/dL (0.7-1.3); GFR1 > 60 mL/min; GLUCOSE SERUM 109 mg/dL (74-106); MAGNESIUM 2.1 mg/dL (1.8-2.4); PHOSPHOROUS 3.7 mg/dL (2.5-4.9); POTASSIUM SERUM 4.5 mmol/L (3.5-5.1); SODIUM SERUM 139 mmol/L (136-145)
[2017-04-16 10:26] VITALS: BP 100/71
[2017-04-16 14:14] VITALS: BP 93/64
[2017-04-16 17:26] VITALS: BP 109/70
[2017-04-16 20:50] VITALS: BP 102/70
[2017-04-17 05:20] VITALS: BP 87/57
[2017-04-17 07:13] LABS: BASOPHIL % 0.3 % (0-2); PLATELET COUNT 367 x10^3mcL (130-400)
[2017-04-17 07:18] LABS: RED CELL DISTRIBUTION WIDTH 16.1 % (11.5-14.5)
[2017-04-17 07:26] LABS: CALCIUM 8.6 mg/dL (8.5-10.1); CARBON DIOXIDE 31.8 mmol/L (21-32); CHLORIDE SERUM 103 mmol/L (98-107); CREATININE SERUM 0.7 mg/dL (0.7-1.3); GFR1 > 60 mL/min; GLUCOSE SERUM 96 mg/dL (74-106); POTASSIUM SERUM 4.6 mmol/L (3.5-5.1); SODIUM SERUM 139 mmol/L (136-145)
[2017-04-17 07:57] VITALS: BP 106/65
[2017-04-17] MEDS ORDERED: HAL1 PO (10:27)
[2017-04-17] MEDS ORDERED: ATI1 GT (10:28)
[2017-04-17] MEDS ORDERED: COG1 GT (10:29)
[2017-04-17] MEDS ORDERED: PEP20I IV (10:30)
[2017-04-17 12:33] VITALS: BP 106/65
== END 2017-04-17 14:15 | DRG 871 ==
LOC: ED 07:37 → DU 09:19
PROVIDERS: Specialist; ADMIT Family Medicine Sports Medicine
DX: A41.9 Sepsis, unspecified organism (principal); E43 Unspecified severe protein-calorie malnutrition; N17.0 Acute kidney failure with tubular necrosis; G80.0 Spastic quadriplegic cerebral palsy; K92.2 Gastrointestinal hemorrhage, unspecified; N39.0 Urinary tract infection, site not specified; Z68.1 Body mass index [BMI] 19.9 or less, adult; F73 Profound intellectual disabilities; F84.0 Autistic disorder; R65.20 Severe sepsis without septic shock; K21.0 Gastro-esophageal reflux disease with esophagitis; K44.9 Diaphragmatic hernia without obstruction or gangrene; J30.9 Allergic rhinitis, unspecified; D64.9 Anemia, unspecified; M41.35 Thoracogenic scoliosis, thoracolumbar region; Q90.9 Down syndrome, unspecified; Z86.11 Personal history of tuberculosis; Z93.4 Other artificial openings of gastrointestinal tract status; Z93.1 Gastrostomy status
CPT/HCPCS: 82962; 83880; 84439; C9113; J2543; J3490; J7030; J8597; Q0092

== ENCOUNTER 2017-04-21 00:34 | Observation (INO) | payer OTHER, MEDICAID ==
[~2017-04-21] VITALS: Ht 121.9 cm; Wt 49.6 kg
[~2017-04-21 00:34] MED LIST changes: +ATI1 GT; +COG1 GT; +ESOMEPRAZOLE MA40 MG GT; +HAL1 PO; +PEP20I IV; +SEROQUEL100 MG GT; +SUNMARK S
[2017-04-21 03:53] LABS: CHOLESTEROL/HDL RATIO 5.4; MAGNESIUM 2.4 mg/dL (1.8-2.4); PHOSPHOROUS 4.7 mg/dL (2.5-4.9)
[2017-04-21 04:08] VITALS: BP 101/57
[2017-04-21 04:35] LABS: FREE T4 1.11 ng/dL (0.76-1.46); FREE THYROXINE INDEX 2.9 ug/dL (1.4-4.5); T4(THYROXINE) 8.4 ug/dL (4.7-13.3)
[2017-04-21 06:44] LABS: T3 TOTAL 1.73 ng/mL
[2017-04-21 08:40] VITALS: BP 114/67
[2017-04-21 10:43] VITALS: BP 144/67
[2017-04-21 11:41] LABS: BASOPHIL % 0.9 % (0-2)
[2017-04-21 11:46] LABS: CALCIUM 8.7 mg/dL (8.5-10.1); CARBON DIOXIDE 34.7 mmol/L (21-32); CHLORIDE SERUM 108 mmol/L (98-107); CREATININE SERUM 0.9 mg/dL (0.7-1.3); GFR1 > 60 mL/min; GLUCOSE SERUM 109 mg/dL (74-106); SODIUM SERUM 146 mmol/L (136-145)
[2017-04-21 11:57] LABS: PLATELET COUNT 487 x10^3mcL (130-400); RED CELL DISTRIBUTION WIDTH 16.6 % (11.5-14.5)
== END 2017-04-21 12:26 | DRG 393 ==
LOC: ED 00:34 → DU 02:42
PROVIDERS: ADMIT Family Medicine
DX: K94.23 Gastrostomy malfunction (principal); N17.0 Acute kidney failure with tubular necrosis; E43 Unspecified severe protein-calorie malnutrition; G80.0 Spastic quadriplegic cerebral palsy; E87.0 Hyperosmolality and hypernatremia; F73 Profound intellectual disabilities; Q90.9 Down syndrome, unspecified; G40.909 Epilepsy, unspecified, not intractable, without status epilepticus; K44.9 Diaphragmatic hernia without obstruction or gangrene; M41.35 Thoracogenic scoliosis, thoracolumbar region; J30.9 Allergic rhinitis, unspecified; D64.9 Anemia, unspecified; E78.5 Hyperlipidemia, unspecified; Z86.11 Personal history of tuberculosis; Y83.3 Surgical operation with formation of external stoma as the cause of abnormal reaction of the patient, or of later complication, without mention of misadventure at the time of the procedure; Y73.2 Prosthetic and other implants, materials and accessory gastroenterology and urology devices associated with adverse incidents; Y92.099 Unspecified place in other non-institutional residence as the place of occurrence of the external cause; Z68.33 Body mass index [BMI] 33.0-33.9, adult
CPT/HCPCS: 82962; 83880; 84439; G0378; J3490; J7030; J8597; Q0092; Q9966

== ENCOUNTER 2017-04-24 14:04 | Inpatient (IN) | payer OTHER, MEDICAID ==
[~2017-04-24] VITALS: Ht 152.4 cm; Wt 52.3 kg
[2017-04-24 17:53] LABS: CALCIUM 9.8 mg/dL (8.5-10.1); CARBON DIOXIDE 38.1 mmol/L (21-32); CHLORIDE SERUM 110 mmol/L (98-107); CREATININE SERUM 1.1 mg/dL (0.7-1.3); GFR1 > 60 mL/min; GLUCOSE SERUM 117 mg/dL (74-106); POTASSIUM SERUM 3.8 mmol/L (3.5-5.1); SODIUM SERUM 150 mmol/L (136-145)
[2017-04-24 17:58] LABS: PLATELET COUNT 538 x10^3mcL (130-400)
[2017-04-24 17:59] LABS: ALKALINE PHOSPHATASE 57 U/L (46-116); ALT/SGPT 27 U/L (16-63); AST/SGOT 21 U/L (15-37); BILIRUBIN TOTAL 0.32 mg/dL (0.20-1.00); TOTAL PROTEIN, SERUM 7.5 g/dL (6.4-8.2)
[2017-04-24 18:02] LABS: ALBUMIN 2.8 g/dL (3.4-5.0)
[2017-04-24 18:16] LABS: UA SPECIFIC GRAVITY 1.005 (1.005-1.035); microscopic required? YES
[2017-04-24 18:17] LABS: urine erythrocyte 2+ (NEGATIVE)
[2017-04-24 18:21] LABS: BASOPHIL 0 % (0-2); MONOCYTE 6 % (0-7); SEGMENTED NEUTROPHILS 82 % (37-75)
[2017-04-24 18:22] LABS: PLATELET MORPHOLOGY PLATELETS INCREASED; rbc morphology (normal/abnorm) ABNORMAL (NORMAL)
[2017-04-24 19:25] LABS: T3 TOTAL 1.46 ng/mL
[2017-04-24 19:37] LABS: CHOLESTEROL/HDL RATIO 4.3; MAGNESIUM 2.4 mg/dL (1.8-2.4); PHOSPHOROUS 3.8 mg/dL (2.5-4.9)
[2017-04-24 19:45] LABS: FREE T4 1.05 ng/dL (0.76-1.46); FREE THYROXINE INDEX 2.6 ug/dL (1.4-4.5)
[2017-04-24 20:46] VITALS: BP 95/69
[2017-04-25 05:20] VITALS: BP 104/62
[2017-04-25 07:27] LABS: BASOPHIL % 0.4 % (0-2)
[2017-04-25 07:28] LABS: PLATELET COUNT 523 x10^3mcL (130-400)
[2017-04-25 07:54] LABS: CALCIUM 9.4 mg/dL (8.5-10.1); CARBON DIOXIDE 33.5 mmol/L (21-32); CHLORIDE SERUM 112 mmol/L (98-107); CREATININE SERUM 1.1 mg/dL (0.7-1.3); GFR1 > 60 mL/min; GLUCOSE SERUM 104 mg/dL (74-106); POTASSIUM SERUM 4.1 mmol/L (3.5-5.1); SODIUM SERUM 152 mmol/L (136-145)
[2017-04-25 09:46] VITALS: BP 121/73
[2017-04-25 12:20] VITALS: BP 98/51
[2017-04-25 17:17] VITALS: BP 101/72
[2017-04-25 20:37] VITALS: BP 100/56
[2017-04-26 05:06] VITALS: BP 94/59
[2017-04-26 06:15] LABS: BASOPHIL % 0.4 % (0-2)
[2017-04-26 06:24] LABS: PLATELET COUNT 447 x10^3mcL (130-400); RED CELL DISTRIBUTION WIDTH 16.6 % (11.5-14.5)
[2017-04-26 06:37] LABS: CALCIUM 8.6 mg/dL (8.5-10.1); CARBON DIOXIDE 30.4 mmol/L (21-32); CHLORIDE SERUM 113 mmol/L (98-107); CREATININE SERUM 0.9 mg/dL (0.7-1.3); GFR1 > 60 mL/min; GLUCOSE SERUM 91 mg/dL (74-106); MAGNESIUM 2.4 mg/dL (1.8-2.4); PHOSPHOROUS 3.4 mg/dL (2.5-4.9); POTASSIUM SERUM 3.5 mmol/L (3.5-5.1); SODIUM SERUM 149 mmol/L (136-145)
[2017-04-26 08:03] VITALS: BP 101/53
[2017-04-26] MEDS ORDERED: PEP20I IV (11:03)
[2017-04-26] MEDS ORDERED: HAL1 PO (11:03)
[2017-04-26] MEDS ORDERED: COG1 GT (11:04)
[2017-04-26 12:42] VITALS: BP 101/53
== END 2017-04-26 15:33 | DRG 884 ==
LOC: ED 14:04 → DU 18:17 → EDBEDREQ 18:21 → DU 19:55
PROVIDERS: Emergency Medicine; ADMIT Family Medicine
DX: F54 Psychological and behavioral factors associated with disorders or diseases classified elsewhere (principal); N17.0 Acute kidney failure with tubular necrosis; E43 Unspecified severe protein-calorie malnutrition; G80.0 Spastic quadriplegic cerebral palsy; F73 Profound intellectual disabilities; N39.0 Urinary tract infection, site not specified; R11.10 Vomiting, unspecified; Q90.9 Down syndrome, unspecified; F84.0 Autistic disorder; G40.909 Epilepsy, unspecified, not intractable, without status epilepticus; K44.9 Diaphragmatic hernia without obstruction or gangrene; M41.9 Scoliosis, unspecified; E78.5 Hyperlipidemia, unspecified; Z68.22 Body mass index [BMI] 22.0-22.9, adult; Z93.4 Other artificial openings of gastrointestinal tract status; Z86.11 Personal history of tuberculosis; Z74.01 Bed confinement status
CPT/HCPCS: 82962; 83880; 84439; J2543; J3490; J7030; J8597

== ENCOUNTER 2017-07-22 10:37 | Inpatient (IN) | payer OTHER, MEDICAID ==
[~2017-07-22] VITALS: Ht 160 cm; Wt 55.9 kg
[2017-07-22 12:02] LABS: RED CELL DISTRIBUTION WIDTH 17.8 % (11.5-14.5)
[2017-07-22 12:07] LABS: CALCIUM 9.1 mg/dL (8.5-10.1); CARBON DIOXIDE 34.8 mmol/L (21-32); CHLORIDE SERUM 105 mmol/L (98-107); GFR1 > 60 mL/min; GLUCOSE SERUM 139 mg/dL (74-106); POTASSIUM SERUM 3.5 mmol/L (3.5-5.1); SODIUM SERUM 141 mmol/L (136-145)
[2017-07-22 12:12] LABS: ALKALINE PHOSPHATASE 94 U/L (46-116); ALT/SGPT 22 U/L (16-63); AST/SGOT 28 U/L (15-37); BILIRUBIN TOTAL 0.37 mg/dL (0.20-1.00); TOTAL PROTEIN, SERUM 7.2 g/dL (6.4-8.2)
[2017-07-22 12:14] LABS: ALBUMIN 1.9 g/dL (3.4-5.0)
[2017-07-22 12:15] LABS: UA SPECIFIC GRAVITY 1.025 (1.005-1.035); microscopic required? YES; urine erythrocyte NEGATIVE (NEGATIVE)
[2017-07-22 13:28] LABS: SEGMENTED NEUTROPHILS 79 % (37-75)
[2017-07-22 13:29] LABS: BAND NEUTROPHIL 7 % (0-10); MONOCYTE 6 % (0-7); PLATELET MORPHOLOGY LARGE PLATELET SEEN; rbc morphology (normal/abnorm) ABNORMAL (NORMAL)
[2017-07-22 13:30] LABS: PLATELET COUNT 525 x10^3mcL (130-400)
[2017-07-22 14:29] LABS: AMPHETAMINE QUAL UR NONE DETECTED (NEG <=1000)
[2017-07-22 14:31] LABS: T3 TOTAL 0.68 ng/mL
[2017-07-22 14:38] LABS: CHOLESTEROL/HDL RATIO 3.6; MAGNESIUM 2.4 mg/dL (1.8-2.4); PHOSPHOROUS 3.9 mg/dL (2.5-4.9)
[2017-07-22 14:46] LABS: FREE T4 1.06 ng/dL (0.76-1.46); T4(THYROXINE) 5.5 ug/dL (4.7-13.3)
[2017-07-22 15:25] LABS: IRON 16 ug/dL (65-170); TOTAL IRON BINDING CAPACITY 192 ug/dL (250-450)
[2017-07-22 15:40] VITALS: BP 81/53
[2017-07-22 16:14] LABS: RED BLOOD CELLS 4.11 M/mm3 (4.52-5.90)
[2017-07-22 17:31] VITALS: BP 81/53
[2017-07-22 17:50] VITALS: BP 95/65
[2017-07-22 20:10] VITALS: BP 99/62
[2017-07-23 05:37] VITALS: BP 87/59
[2017-07-23 06:11] LABS: BASOPHIL % 0.3 % (0-2); PLATELET COUNT 391 x10^3mcL (130-400)
[2017-07-23 06:37] LABS: CALCIUM 8.4 mg/dL (8.5-10.1); CHLORIDE SERUM 115 mmol/L (98-107); CREATININE SERUM 0.7 mg/dL (0.7-1.3); GFR1 > 60 mL/min; GLUCOSE SERUM 88 mg/dL (74-106); MAGNESIUM 2.1 mg/dL (1.8-2.4); PHOSPHOROUS 3.6 mg/dL (2.5-4.9); POTASSIUM SERUM 4.2 mmol/L (3.5-5.1); SODIUM SERUM 152 mmol/L (136-145)
[2017-07-23 06:52] LABS: RED CELL DISTRIBUTION WIDTH 18.3 % (11.5-14.5)
[2017-07-23 06:53] LABS: rbc morphology (normal/abnorm) ABNORMAL (NORMAL)
[2017-07-23 08:00] VITALS: BP 94/57
[2017-07-23 11:08] VITALS: BP 97/64
[2017-07-23 15:58] LABS: CALCIUM 8.4 mg/dL (8.5-10.1); CARBON DIOXIDE 28.9 mmol/L (21-32); CHLORIDE SERUM 110 mmol/L (98-107); CREATININE SERUM 0.8 mg/dL (0.7-1.3); GFR1 > 60 mL/min; GLUCOSE SERUM 117 mg/dL (74-106); POTASSIUM SERUM 3.7 mmol/L (3.5-5.1); SODIUM SERUM 149 mmol/L (136-145)
[2017-07-23 18:02] VITALS: BP 92/59
[2017-07-23 21:53] VITALS: BP 90/55
[2017-07-24 05:43] VITALS: BP 101/55
[2017-07-24 06:54] LABS: BASOPHIL % 0.1 % (0-2)
[2017-07-24 06:57] LABS: PLATELET COUNT 437 x10^3mcL (130-400); RED CELL DISTRIBUTION WIDTH 18.1 % (11.5-14.5)
[2017-07-24 07:03] LABS: CALCIUM 7.9 mg/dL (8.5-10.1); CARBON DIOXIDE 27.9 mmol/L (21-32); CHLORIDE SERUM 109 mmol/L (98-107); CREATININE SERUM 0.7 mg/dL (0.7-1.3); GFR1 > 60 mL/min; GLUCOSE SERUM 142 mg/dL (74-106); POTASSIUM SERUM 3.7 mmol/L (3.5-5.1); SODIUM SERUM 145 mmol/L (136-145)
[2017-07-24 09:30] VITALS: BP 99/51
[2017-07-24 13:18] VITALS: BP 99/55
[2017-07-24 17:59] VITALS: BP 101/68
[2017-07-24 21:43] VITALS: BP 101/50
[2017-07-25 05:58] VITALS: BP 109/67
[2017-07-25 07:30] LABS: BASOPHIL % 0.2 % (0-2)
[2017-07-25 07:35] LABS: PLATELET COUNT 448 x10^3mcL (130-400); RED CELL DISTRIBUTION WIDTH 17.2 % (11.5-14.5)
[2017-07-25 07:36] LABS: rbc morphology (normal/abnorm) ABNORMAL (NORMAL)
[2017-07-25 07:50] LABS: CALCIUM 7.8 mg/dL (8.5-10.1); CARBON DIOXIDE 27.3 mmol/L (21-32); CHLORIDE SERUM 105 mmol/L (98-107); CREATININE SERUM 0.7 mg/dL (0.7-1.3); GFR1 > 60 mL/min; GLUCOSE SERUM 110 mg/dL (74-106); POTASSIUM SERUM 3.3 mmol/L (3.5-5.1); SODIUM SERUM 139 mmol/L (136-145)
[2017-07-25 08:55] VITALS: BP 111/63
[2017-07-25 13:17] VITALS: BP 112/69
[2017-07-25 17:17] VITALS: BP 150/59
[2017-07-25 22:04] VITALS: BP 118/64
[2017-07-25 23:45] VITALS: BP 103/61
[2017-07-26 03:25] VITALS: BP 97/62
[2017-07-26 05:50] LABS: BASOPHIL % 0.1 % (0-2)
[2017-07-26 05:58] LABS: PLATELET COUNT 431 x10^3mcL (130-400); RED CELL DISTRIBUTION WIDTH 17.7 % (11.5-14.5)
[2017-07-26 06:05] LABS: CALCIUM 7.8 mg/dL (8.5-10.1); CARBON DIOXIDE 24.4 mmol/L (21-32); CHLORIDE SERUM 106 mmol/L (98-107); CREATININE SERUM 0.6 mg/dL (0.7-1.3); GFR1 > 60 mL/min; GLUCOSE SERUM 112 mg/dL (74-106); SODIUM SERUM 139 mmol/L (136-145)
[2017-07-26 07:25] VITALS: BP 106/65
[2017-07-26 07:58] VITALS: Ht 160 cm; Wt 55.9 kg
[2017-07-26 17:18] VITALS: BP 110/67
[2017-07-26 21:36] VITALS: BP 117/69
[2017-07-27 05:59] VITALS: BP 109/63
[2017-07-27 07:14] LABS: BASOPHIL % 0.1 % (0-2)
[2017-07-27 07:15] LABS: CALCIUM 8.2 mg/dL (8.5-10.1); CARBON DIOXIDE 24.2 mmol/L (21-32); CHLORIDE SERUM 103 mmol/L (98-107); CREATININE SERUM 0.6 mg/dL (0.7-1.3); GFR1 > 60 mL/min; GLUCOSE SERUM 105 mg/dL (74-106); POTASSIUM SERUM 3.5 mmol/L (3.5-5.1); SODIUM SERUM 137 mmol/L (136-145)
[2017-07-27 07:18] LABS: PLATELET COUNT 562 x10^3mcL (130-400); RED CELL DISTRIBUTION WIDTH 17.9 % (11.5-14.5); rbc morphology (normal/abnorm) ABNORMAL (NORMAL)
[2017-07-27 09:09] VITALS: BP 105/74
[2017-07-27 12:42] VITALS: BP 114/75
[2017-07-27] MEDS ORDERED: CLA10 GT (17:11)
[2017-07-27] MEDS ORDERED: MEROPENEM-1 GM/50 ML IV (17:13)
[2017-07-27] MEDS ORDERED: VANCO 1 GR1 GM/250 M IV (17:15)
[2017-07-27] MEDS ORDERED: BACO TOP (17:48)
[2017-07-27] MEDS ORDERED: VITC GT (17:48)
[2017-07-27] MEDS ORDERED: TYL650L GT (17:48)
[2017-07-27] MEDS ORDERED: VITAMIN B-650 M1 GT (17:48)
[2017-07-27] MEDS ORDERED: LAC GT (17:48)
[2017-07-27] MEDS ORDERED: MVIL GT (17:48)
[2017-07-27] MEDS ORDERED: ATI2I IV (17:48)
[2017-07-27] MEDS ORDERED: PEP20I IV (17:48)
[2017-07-27] MEDS ORDERED: HIBICLENS118 ML TOP (17:48)
[2017-07-27] MEDS ORDERED: COG1 GT (17:48)
[2017-07-27] MEDS ORDERED: IPRATROPIUM BROM3 M2 HHN (17:48)
[2017-07-27 18:08] VITALS: BP 102/62
[2017-07-27 18:53] VITALS: BP 102/62
== END 2017-07-27 20:08 | DRG 177 ==
LOC: ED 10:37 → DU 13:55 → IC 07-25 22:30 → DU 07-26 11:55
PROVIDERS: Emergency Medicine; Family Medicine
DX: J69.0 Pneumonitis due to inhalation of food and vomit (principal); J96.21 Acute and chronic respiratory failure with hypoxia; N17.0 Acute kidney failure with tubular necrosis; E43 Unspecified severe protein-calorie malnutrition; G80.0 Spastic quadriplegic cerebral palsy; B37.49 Other urogenital candidiasis; F73 Profound intellectual disabilities; F84.0 Autistic disorder; K94.22 Gastrostomy infection; K21.9 Gastro-esophageal reflux disease without esophagitis; K44.9 Diaphragmatic hernia without obstruction or gangrene; E11.43 Type 2 diabetes mellitus with diabetic autonomic (poly)neuropathy; K31.84 Gastroparesis; Q90.9 Down syndrome, unspecified; E11.51 Type 2 diabetes mellitus with diabetic peripheral angiopathy without gangrene; M41.35 Thoracogenic scoliosis, thoracolumbar region; J30.9 Allergic rhinitis, unspecified; D50.9 Iron deficiency anemia, unspecified; Z68.21 Body mass index [BMI] 21.0-21.9, adult; Z86.11 Personal history of tuberculosis; Z93.4 Other artificial openings of gastrointestinal tract status; Z99.81 Dependence on supplemental oxygen; Z74.01 Bed confinement status; Z22.322 Carrier or suspected carrier of Methicillin resistant Staphylococcus aureus; Y83.3 Surgical operation with formation of external stoma as the cause of abnormal reaction of the patient, or of later complication, without mention of misadventure at the time of the procedure; Y73.2 Prosthetic and other implants, materials and accessory gastroenterology and urology devices associated with adverse incidents; Y92.122 Bedroom in nursing home as the place of occurrence of the external cause
CPT/HCPCS: 83880; 84439; J0696; J1940; J1956; J2060; J2185; J2916; J3370; J3480; J3490; J7030; J7620; J8597; Q0092